=== PATIENT | female | born 1980 | race Caucasian/White ===

== ENCOUNTER 2017-09-01 12:05 | Emergency (ER) | payer MEDICAID, SELFPAY ==
[2017-09-01 12:06] VITALS: BP 133/70; PULSE 77; RESP 18; TEMP 37.1; O2SAT 100; BMI 27.7
--- NOTE | 2017-09-01 12:26 | VDLE_ITS ---
Reason For Study: Swelling LLE RIGHT LEFT CFV is compressible, spontaneous, phasic, GSV is normal. competent and demonstrates normal CFV is compressible, spontaneous, phasic, augmentation. competent, and demonstrates normal Procedure augmentation. Exam performed portable in ED. FV is compressible, spontaneous, phasic, A preliminary report was called and/or faxed competent and demonstrates normal to Dr. Aldana. augmentation. POP V is compressible, spontaneous, phasic, competent and demonstrates normal augmentation. T/P Trunk is compressible. PTV is compressible. LT PerV is compressible. Lt GSV branch is dilated and non compressible from the mid thigh to the mid calf Image 11 and 12 mislabeled (should be labeled Lt GSV branch). Interpretation Summary Deep veins of the left lower extremity are patent and compressible segmentally. There is no evidence of left lower extremity deep vein thrombosis. Valvular competence appears intact within the proximal deep venous system on the left . The left greater saphenous vein appears patent and compressible segmentally. Acute superficial thrombophlebitis is noted involving a branch of the left greater saphenous vein from the left mid-thigh to the left mid-calf. Ordering Physician: Kj Aldana Performed By: Melinda Eubanks, CALVIN, RVT
[2017-09-01] MEDS: Ibuprofen 600 MG Tablet PO (12:32)
[2017-09-01 12:39] LABS: Bacteria 0 SEEN /hpf (None Seen); Mucous, Urine 0 SEEN /hpf (<or=2+); White Blood Cells 0 SEEN /hpf (0-5)
[2017-09-01 12:42] LABS: Internal QC Validated? YES +Cl - CLEAR BKGD
[2017-09-01 12:43] LABS: Color, Urine Yellow (Yellow); Glucose, Dipstick Normal (Normal); Ketone-Dipstick Negative (Negative); Leukocyte Esterase-Dipstick Negative /ul (Negative); Nitrite-Dipstick Negative (Negative); Occult Blood-Urine 250 /ul (Negative); Protein-Dipstick Negative (Negative); Urine Bilirubin Dipstick Negative (Negative); Urine Clarity Sl. Cloudy (Clear); Urine Urobilinogen Normal (Normal)
[2017-09-01 12:46] LABS: Pregnancy, Urine Negative Negative
[2017-09-01 12:50] LABS: Red Blood Cells-Urine 50-100 SEEN /hpf (0-5)
[2017-09-01 12:51] LABS: Squamous Epithelial Cells - UA 0-5 SEEN /hpf (5-10)
--- NOTE | 2017-09-01 13:55 | ED.VISSUMM ---
- ER Visit Summary Date of Service: 09/01/17 Chief Complaint: Abdominal pain History of Present Illness: The patient is a 37 F who goes to the [facility]. She reports that she has abdominal pain that began 2 days ago while she was working out. States it is in her right lower abdomen. It is a cramping pain Zeta 10 at worst and 2 out of 10 currently. Is worsened by movement or walking. Is relieved by heating pad. She denies any nausea, vomiting, or diarrhea. Her last bowel movement was yesterday. No melena or hematochezia. No dysuria or frequency. She reports that she is on her period now. She reports that her left leg is swollen that began this morning. No recent travel. She does have a family history of DVT. No chest pain or shortness of breath. Physical Examination: Vitals: Stable. Afebrile. General: Well-nourished and well-developed. Head: Normocephalic atraumatic. Neck: Supple, no lymphadenopathy. No JVD. Nontender. Cardiovascular: Regular rate and rhythm. No murmurs. Respiratory: No respiratory distress. Clear to auscultation bilaterally. Abdominal: Soft, nontender, nondistended, normal bowel sounds. No guarding, rebound, or peritoneal signs. Ascites. Back: Nontender. Extremities: Nontender, 1+ pitting edema of her left lower extremity. 2+ dorsalis pedis pulse bilaterally. Skin: Normal color, no rash. Neurologic: Alert and oriented ?3. Cranial nerves II through XII are intact. Normal strength and sensation. Psych: Normal affect. Test Results: Urinalysis is negative. test is negative. Left lower extremity Doppler shows no DVT. She does have a superficial thrombus phlebitis in the greater saphenous vein. Emergency Department Course and Treatment: Patient was treated with ibuprofen and is resting comfortably. Treatment Plan: Patient will be discharged with ibuprofen. Instructed to use warm compresses to the superficial thrombophlebitis. Follow-up the [facility] in 1 week for repeat exam. Return to the emergency department for any worsening symptoms. Disposition: To home in improved and stable condition. Impression: 1. Superficial thrombophlebitis left leg. 2. Ascites. This note was generated with [employer] software. It may contain incorrect words, spelling, and punctuation that were not noted in review of the chart prior to signing ED Disposition - Plan for ED Patient: Disposition: Home or Assisted Living Chief Complaint: Abd Pain Instructions: ED Ascites, ED Phlebitis Superficial Prescriptions: Ibuprofen 600 mg PO TID PRN #30 tablet PRN Reason: Pain Referrals: Leah Sanches [NON-STAFF] - 1 Week
--- NOTE | 2017-09-01 14:03 | ED.DCSUM_ITS ---
- ER Visit Summary Date of Service: 09/01/17 Chief Complaint: Abdominal pain History of Present Illness: The patient is a 37 F who goes to the [facility]. She reports that she has abdominal pain that began 2 days ago while she was working out. States it is in her right lower abdomen. It is a cramping pain Zeta 10 at worst and 2 out of 10 currently. Is worsened by movement or walking. Is relieved by heating pad. She denies any nausea, vomiting, or diarrhea. Her last bowel movement was yesterday. No melena or hematochezia. No dysuria or frequency. She reports that she is on her period now. She reports that her left leg is swollen that began this morning. No recent travel. She does have a family history of DVT. No chest pain or shortness of breath. Physical Examination: Vitals: Stable. Afebrile. General: Well-nourished and well-developed. Head: Normocephalic atraumatic. Neck: Supple, no lymphadenopathy. No JVD. Nontender. Cardiovascular: Regular rate and rhythm. No murmurs. Respiratory: No respiratory distress. Clear to auscultation bilaterally. Abdominal: Soft, nontender, nondistended, normal bowel sounds. No guarding, rebound, or peritoneal signs. Ascites. Back: Nontender. Extremities: Nontender, 1+ pitting edema of her left lower extremity. 2+ dorsalis pedis pulse bilaterally. Skin: Normal color, no rash. Neurologic: Alert and oriented ?3. Cranial nerves II through XII are intact. Normal strength and sensation. Psych: Normal affect. Test Results: Urinalysis is negative. test is negative. Left lower extremity Doppler shows no DVT. She does have a superficial thrombus phlebitis in the greater saphenous vein. Emergency Department Course and Treatment: Patient was treated with ibuprofen and is resting comfortably. Treatment Plan: Patient will be discharged with ibuprofen. Instructed to use warm compresses to the superficial thrombophlebitis. Follow-up the [facility] in 1 week for repeat exam. Return to the emergency department for any worsening symptoms. Disposition: To home in improved and stable condition. Impression: 1. Superficial thrombophlebitis left leg. 2. Ascites. This note was generated with [employer] software. It may contain incorrect words, spelling, and punctuation that were not noted in review of the chart prior to signing ED Disposition - Plan for ED Patient: Disposition: Home or Assisted Living Chief Complaint: Abd Pain Instructions: ED Ascites, ED Phlebitis Superficial Prescriptions: Ibuprofen 600 mg PO TID PRN #30 tablet PRN Reason: Pain Referrals: Leah Sanches [NON-STAFF] - 1 Week
[2017-09-01 14:13] VITALS: BP 119/62; PULSE 71; RESP 18; O2SAT 100
== END 2017-09-01 14:26 | disposition home or self-care (01) ==
PROVIDERS: Emergency Provider Emergency Medicine
DX: R18.8 Other ascites (principal); I80.02 Phlebitis and thrombophlebitis of superficial vessels of left lower extremity; F11.20 Opioid dependence, uncomplicated; B19.20 Unspecified viral hepatitis C without hepatic coma; Z72.0 Tobacco use
CPT/HCPCS: 81001; 81025; 93971; 99283

== ENCOUNTER 2017-09-09 23:19 | Emergency (ER) | payer MEDICAID, SELFPAY ==
[2017-09-09 23:20] VITALS: BP 120/77; PULSE 80; RESP 15; TEMP 36.8; BMI 27.6
--- NOTE | 2017-09-09 23:43 | ED.VISSUMM ---
- ER Visit Summary Date of Service: 09/09/17 Chief Complaint: [] Left leg pain History of Present Illness: The patient is a 37 F [] presents complaining of worsening left leg pain. Patient reports she was seen last week and told that she had a blood clot. She reports she was not started on any medication for this reported blood clot. She reports continued discomfort despite taking the previously prescribed ibuprofen. She denies any chest pain or shortness of breath. No other complaints at this time. She reports she is living at a residential rehabilitation facility for IV drug abuse. 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 Physical Examination: [] Afebrile, vital signs stable. 37-year-old female no acute distress. Reading a novel upon my entry into the room. Cardiovascular exam is regular rate and rhythm. Lungs are clear to auscultation. Abdomen is soft and nontender. There is mild tenderness to the left calf without asymmetry compared to the contralateral leg. Test Results: [] None. Emergency Department Course and Treatment: [] I reviewed the patient's dictation from her previous visit and she was in fact diagnosed with superficial thrombophlebitis. She will be encouraged to continue using NSAIDs [id number]. No further evaluation was warranted at this time for this presentation. Treatment Plan: [] Follow-up with PCP. Disposition: [] Discharge, stable. Impression: [] Left lower extremity superficial thrombophlebitis This note was generated with [employer] dictation software. It may contain incorrect words, spelling, and punctuation that were not noted in review of the chart prior to signing ED Disposition - Plan for ED Patient: Chief Complaint: Lower Extremity Injury Referrals: Care Physician,No Primary [Primary Care Provider] -
--- NOTE | 2017-09-09 23:46 | ED.DCSUM_ITS ---
- ER Visit Summary Date of Service: 09/09/17 Chief Complaint: [] Left leg pain History of Present Illness: The patient is a 37 F [] presents complaining of worsening left leg pain. Patient reports she was seen last week and told that she had a blood clot. She reports she was not started on any medication for this reported blood clot. She reports continued discomfort despite taking the previously prescribed ibuprofen. She denies any chest pain or shortness of breath. No other complaints at this time. She reports she is living at a residential rehabilitation facility for IV drug abuse. 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 Physical Examination: [] Afebrile, vital signs stable. 37-year-old female no acute distress. Reading a novel upon my entry into the room. Cardiovascular exam is regular rate and rhythm. Lungs are clear to auscultation. Abdomen is soft and nontender. There is mild tenderness to the left calf without asymmetry compared to the contralateral leg. Test Results: [] None. Emergency Department Course and Treatment: [] I reviewed the patient's dictation from her previous visit and she was in fact diagnosed with superficial thrombophlebitis. She will be encouraged to continue using NSAIDs [id number]. No further evaluation was warranted at this time for this presentation. Treatment Plan: [] Follow-up with PCP. Disposition: [] Discharge, stable. Impression: [] Left lower extremity superficial thrombophlebitis This note was generated with [employer] dictation software. It may contain incorrect words, spelling, and punctuation that were not noted in review of the chart prior to signing ED Disposition - Plan for ED Patient: Chief Complaint: Lower Extremity Injury Referrals: Care Physician,No Primary [Primary Care Provider] -
--- NOTE | 2017-09-09 23:46 | ED.DEP ---
ED Disposition - Plan for ED Patient: Disposition: Home or Assisted Living Chief Complaint: Lower Extremity Injury Instructions: ED Phlebitis Superficial Prescriptions: Naproxen 500 mg PO BID PRN PRN #20 tab PRN Reason: Pain Referrals: Care Physician,No Primary [Primary Care Provider] -
[2017-09-09 23:47] VITALS: BP 116/78; PULSE 84; RESP 15; O2SAT 98
== END 2017-09-09 23:54 | disposition home or self-care (01) ==
PROVIDERS: Emergency Provider Emergency Medicine; Family Provider Nurse Practitioner Family; PCP Nurse Practitioner Family
DX: I80.02 Phlebitis and thrombophlebitis of superficial vessels of left lower extremity (principal); Z79.82 Long term (current) use of aspirin
CPT/HCPCS: 99282

== ENCOUNTER → 2017-09-16 07:56 | Outpatient (CLI) | payer MEDICAID, SELFPAY ==
[2017-09-16 09:53] LABS: AST(SGOT) 28 U/L (15-37); Alanine Aminotransfer ALT/SGPT 50 U/L (13-56); Albumin, Serum 3.5 g/dL (3.2-5.0); Alkaline Phosphatase 57 U/L (45-117); Bilirubin, Direct 0.08 mg/dL (0.00-0.30); Cholesterol 176 mg/dL (200); Globulin 3.6 g/dL (2.2-4.2); High Density Lipoprotein 76 mg/dL; Protein, Total 7.1 g/dL (6.4-8.2); Triglycerides 93 mg/dL; Very Low Density Lipoprotein 19 mg/dL (5-40)
== END ==
PROVIDERS: Family Provider Nurse Practitioner Family; PCP Nurse Practitioner Family; Visit Provider Internal Medicine Cardiovascular Disease
DX: R18.8 Other ascites (principal); I43 Cardiomyopathy in diseases classified elsewhere
CPT/HCPCS: 36415; 80061; 80076

== ENCOUNTER → 2017-09-27 13:11 | Outpatient (CLI) | payer MEDICAID, SELFPAY ==
--- NOTE | 2017-09-27 13:18 | RAD_ITS ---
STUDY: X-RAY - LEFT SHOULDER REASON FOR EXAM: Female, 37 years old. Pain TECHNIQUE: 4 view(s) of the shoulder. COMPARISON: None. FINDINGS: Normal glenohumeral articulation. Normal acromioclavicular joint. Normal acromion. Normal humeral head and visualized proximal humerus. The soft tissue structures are unremarkable. Normal visualized pulmonary apex. RAD/Shoulder min 2 Views IMPRESSION: Normal x-ray examination of the shoulder. Electronically Signed: Jose Macdonald DO at 0:00 EDT , Service support ,
== END ==
PROVIDERS: Family Provider Nurse Practitioner Family; PCP Nurse Practitioner Family; Visit Provider Nurse Practitioner Family
DX: M25.512 Pain in left shoulder (principal)
CPT/HCPCS: 73030

== ENCOUNTER → 2017-09-29 | Outpatient (CLI) | payer MEDICAID, SELFPAY | END | disposition home or self-care (01) | DX: B18.2 Chronic viral hepatitis C (principal) ==

== ENCOUNTER → 2017-10-02 13:05 | Outpatient (CLI) | payer MEDICAID, SELFPAY ==
--- NOTE | 2017-10-02 13:06 | ECHOD_ITS ---
Reason For Study: CM Procedure This was a 2D Doppler, Color Flow transthoracic echocardiogram. Exam performed in department. Left Ventricle Normal size and thickness. The estimated ejection fraction is 55-60 %. Normal diastology for age. No regional wall motion abnormalities noted. Right Ventricle Normal size and thickness. Normal systolic function. Atria Normal left atrium. Normal right atrium. Normal atrial septum. Mitral Valve The mitral valve is structurally normal. No prolapse or stenosis seen. Trivial mitral valve insufficiency. Tricuspid Valve Normal tricuspid valve. Trivial tricuspid valve insufficiency. Right ventricular systolic pressure estimated to be 28 mmHg. Aortic Valve Normal aortic valve. Trisinus/trileaflet aortic valve. Pulmonic Valve Normal pulmonic valve. Trivial eccentric pulmonic valve insufficiency. Great Vessels Normal aortic root. Normal arch. Normal inferior vena cava. Inferior vena cava collapse with sniff. Pericardium/Pleural No pericardial effusion. MMode/2D Measurements & Calculations LVIDd: 5.0 cm IVSd: 0.86 cm Ao root diam: 2.8 cm LVIDs: 3.2 cm LVPWd: 0.77 cm RVDd: 3.7 cm FS: 35.7 % LAV(MOD-bp): 30.9 ml EDV(MOD-sp4): 93.6 ml SV(MOD-sp4): 56.0 ml LAV(MOD-bp) Indexed: 16.4 ml/m2 ESV(MOD-sp4): 37.5 ml LAV(MOD-sp2): 35.6 ml EF(MOD-sp4): 59.9 % LAV(MOD-sp4): 22.5 ml LA A4 area: 11.6 cm2 RA A4 area: 13.1 cm2 Doppler Measurements & Calculations MV E max caesar: 100.4 cm/sec Lat Peak E' Caesar: 17.7 cm/sec Med Peak E' Caesar: 14.5 cm/sec MV A max caesar: 57.8 cm/sec E/E' lat: 5.7 E/E' med: 6.9 MV E/A: 1.7 Ao V2 max: 130.6 cm/sec LV V1 max: 101.5 cm/sec PA V2 max: 76.9 cm/sec Ao max P.8 mmHg LV V1 max P.1 mmHg Ao V2 mean: 102.7 cm/sec Ao mean P.5 mmHg Ao V2 VTI: 27.7 cm TR max caesar: 238.2 cm/sec TR max P.7 mmHg Interpretation Summary The estimated ejection fraction is 55-60 %. Normal diastology for age. Trivial mitral valve insufficiency. Trivial tricuspid valve insufficiency. Right ventricular systolic pressure estimated to be 28 mmHg. Compared to echo report dated 02/10/2016, LV function has markedly improved from 45% to 55-60%. Ordering Physician: Joey Jung Referring Physician: Leah Sanches [facility] Performed By: Melinda Eubanks, CALVIN, RVT
== END ==
PROVIDERS: Visit Provider Internal Medicine Cardiovascular Disease
DX: R06.09 Other forms of dyspnea (principal); I43 Cardiomyopathy in diseases classified elsewhere; F19.10 Other psychoactive substance abuse, uncomplicated; R18.8 Other ascites
CPT/HCPCS: 93306

== ENCOUNTER → 2017-10-07 09:42 | Outpatient (CLI) | payer MEDICAID, SELFPAY ==
[2017-10-07 11:39] LABS: GGTP 12 U/L (5-55)
== END ==
DX: B18.2 Chronic viral hepatitis C (principal)
CPT/HCPCS: 36415; 82247; 82977

== ENCOUNTER → 2017-10-11 06:57 | Outpatient (CLI) | payer MEDICAID, SELFPAY ==
--- NOTE | 2017-10-11 07:39 | STE_ITS ---
Reason For Study: Cardiomyopathy, Dyspnea Stress Results Protocol: Jerald Protocol Maximum Predicted HR: 182 bpm Target HR: 155 bpm% Max imum Predicted HR: 97 % DurationHeart Rate Stage (mm:ss) (bpm) BPCom ment Baseline 75 90/60 No Chest Pain Jerald Protocol Stage I 3:00 10 2 98/62No Chest Pain Jerald Protocol Stage II 3:00 12 6 116/60No Chest Pain Jerald Protocol Stage III 3:00 15 3 130/64No Chest Pain Jerald Protocol Stage IV 1:00 17 6 / No Chest Pain Recovery 99 10/70 No Chest Pain Stress Duration: 10:00 mm:ss Maximum Stress HR: 176 bpmME TS: 13 Baseline Echocardiogram Findings The estimated ejection fraction is 65 %. Stress Echo Wall motion Data Resting WMIntermediate WMStress WM Resting Wall Motion Wall Motion Stress No regional wall motion No regional wall motion abnormalities noted. abnormalities noted. EKG Data Normal intervals are noted. The patient exercised according to the regular Jerald protocol for a total duration of 10:00. The maximum heart rate attained was 179 beats per minute. This was 98% of maximum predicted heart rate. The patient exercised into stage 4 of the Jerald protocol. During stress, there were no ST or T wave changes noted to suggest ischemia. At peak exercise, upsloping ST changes only were noted, which did not meet the criteria for ischemia. Interpretation Summary The estimated ejection fraction is 65 %. Normal, adequate, treadmill echocardiogram. Negative for ischemia by EKG and echocardiographic criteria. No anginal symptoms noted. No arrhythmias noted. Average exercise capacity for age. Appropriate blood pressure response to exercise. Test terminated due to dyspnea. Final LVEF of 70%. No complications. Ordering Physician: Joey Jung Referring Physician: Joey Jung Performed By: Burke Partida RCS
--- NOTE | 2017-10-12 11:24 | PFTCOMP ---
COMPLETE PULMONARY FUNCTION TEST INTERPRETATION Brief HPI: Patient is a 37 year old female, currently under the care of Dr. Jung, who presents to [facility] for complete pulmonary function tests secondary to diagnosis of dyspnea. Respiratory therapist reports good effort and reproducible results. Interpretation: Forced expiration spirometry shows a mild large airways obstructive ventilatory defect with an FEV1 of 91% predicted. There is no significant bronchodilator response by ATS criteria. Spirograms are of good quality and plateau slowly, indicating slowly emptying areas of the lungs. The respiratory flow volume loop shows a normal pattern. However, there does appear to be flattening of the inspiratory limb and may indicate an extrathoracic variable obstruction. Lung volumes by body plethysmography show a normal total lung capacity at 6.42 L, 113% predicted. All other lung volumes are within normal limits. Diffusion capacity by carbon monoxide is normal at 70% predicted. The airway resistance is normal. No previous pulmonary function tests were available for review. Impression: Mild large airways obstructive ventilatory defect with no significant response to bronchodilators. Flow volume loop is suggestive of a variable extrathoracic airway obstruction.
--- NOTE | 2017-10-12 11:27 | PFTCOMP_ITS ---
COMPLETE PULMONARY FUNCTION TEST INTERPRETATION Brief HPI: Patient is a 37 year old female, currently under the care of Dr. Jung, who presents to [facility] for complete pulmonary function tests secondary to diagnosis of dyspnea. Respiratory therapist reports good effort and reproducible results. Interpretation: Forced expiration spirometry shows a mild large airways obstructive ventilatory defect with an FEV1 of 91% predicted. There is no significant bronchodilator response by ATS criteria. Spirograms are of good quality and plateau slowly, indicating slowly emptying areas of the lungs. The respiratory flow volume loop shows a normal pattern. However, there does appear to be flattening of the inspiratory limb and may indicate an extrathoracic variable obstruction. Lung volumes by body plethysmography show a normal total lung capacity at 6.42 L , 113% predicted. All other lung volumes are within normal limits. Diffusion capacity by carbon monoxide is normal at 70% predicted. The airway resistance is normal. No previous pulmonary function tests were available for review. Impression: Mild large airways obstructive ventilatory defect with no significant response to bronchodilators. Flow volume loop is suggestive of a variable extrathoracic airway obstruction.
== END ==
PROVIDERS: Visit Provider Internal Medicine Cardiovascular Disease
DX: R06.02 Shortness of breath (principal); I43 Cardiomyopathy in diseases classified elsewhere; F19.10 Other psychoactive substance abuse, uncomplicated
CPT/HCPCS: 93017; 93350; 94060; 94726; 94729

== ENCOUNTER → 2018-01-23 15:14 | Outpatient (CLI) | payer MEDICAID, SELFPAY ==
--- NOTE | 2018-01-23 15:15 | CT_ITS ---
STUDY: CT SOFT TISSUE NECK WITH CONTRAST REASON FOR EXAM: Female, 38 years old. L's Danlos syndrome. Shortness of breath. RADIATION DOSAGE (If Supplied By Facility): CTDIvol = ( 17.57 ) mGy, DLP = ( 491.48 ) mGycm TECHNIQUE: The patient was scanned in a multi-detector CT scanner. High resolution transaxial imaging was performed following intravenous administration of 75 ml of Isovue 300 contrast material. Sagittal and coronal images were reconstructed. Individualized dose optimization techniques were used for this CT. COMPARISON: None. Apical lungs clear. Normal caliber of the aortic arch. Apical thoracic cage normal. Cervical spine exhibits moderate disc degeneration at C5-C6 only with uncovertebral joint hypertrophy contributing to mild foraminal narrowing. Paranasal sinuses clear, cranial facial osseous structures normal. Intracranial, no acute process, limited evaluation. Extra cranial soft tissues including facial soft tissues and orbital contents appear normal. Pharyngeal and laryngeal soft tissues appear normal. Parapharyngeal and retropharyngeal fat planes appear normal. There is no cervical mass or lymphadenopathy. There is no supraclavicular mass or lymphadenopathy. Normal features of the parotid, submandibular, and thyroid gland. Widely patent pharyngeal and cervical airway, proximal thoracic trachea. Normal proximal esophagus. Normal appearance of the cervical vasculature. CT/Soft Tissue Neck WITH Contrast IMPRESSION: No acute abnormality of the cervical soft tissues. Mild degenerative disc disease at C5-C6 without stenosis. Electronically Signed: Tobin Jose, at 17:53 EDT Tel , Service support ,
== END ==
PROVIDERS: Referring Provider Internal Medicine Critical Care Medicine; Visit Provider Internal Medicine Critical Care Medicine
DX: Q79.6 Ehlers-Danlos syndromes (principal); M50.322 Other cervical disc degeneration at C5-C6 level; R06.09 Other forms of dyspnea
CPT/HCPCS: 70491; Q9967

== ENCOUNTER → 2018-07-05 13:21 | Outpatient (CLI) | payer MEDICAID, SELFPAY ==
[2017-12-28 06:47] VITALS: BMI 26.8
[2018-07-05 14:31] LABS: Amphetamine Urine VISTA NEGATIVE (<1000 ng/mL); Barbiturate Urine VISTA NEGATIVE (< 200 ng/mL); Benzodiazepine Urine VISTA NEGATIVE (< 200 ng/mL); Cocaine Urine VISTA NEGATIVE (< 300 ng/mL); Ecstacy Urine VISTA NEGATIVE (< 500 ng/mL); Methadone Urine VISTA NEGATIVE (< 300 ng/mL); PCP Urine VISTA NEGATIVE (< 25 ng/mL); THC Urine VISTA NEGATIVE (< 50 ng/mL); Vista UDS pH Range 6
[2018-07-05 15:17] LABS: ALB/GLOB Ratio 1.2 RATIO (0.9-2.4); AST(SGOT) 66 U/L (15-37); Alanine Aminotransfer ALT/SGPT 108 U/L (13-56); Albumin, Serum 4.2 g/dL (3.2-5.0); Alkaline Phosphatase 48 U/L (45-117); Anion Gap 8 (5-15); BUN 15 mg/dL (7-18); BUN/Creat Ratio 16.4 RATIO (10-20); Chloride 111 mmol/L (98-107); Creatinine, Serum 0.92 mg/dL (0.55-1.02); EST Glomerular Filtration Rate 72 mL/min (>60); Est Glom Filt Rate - Afr Amer 88 mL/min (>60); Globulin 3.5 g/dL (2.2-4.2); Glucose 107 mg/dL (74-106); Potassium 4.6 mmol/L (3.5-5.1); Protein, Total 7.7 g/dL (6.4-8.2); Sodium Level 141 mmol/L (136-145)
[2018-07-07 12:03] LABS: HCV log 10 6.725 (.)
== END ==
DX: B18.2 Chronic viral hepatitis C (principal)
CPT/HCPCS: 36415; 80053; 80307; 80320; 87522; G0480

== ENCOUNTER → 2018-08-07 12:12 | Outpatient (CLI) | payer MEDICAID, SELFPAY ==
--- NOTE | 2018-08-07 12:15 | US_ITS ---
STUDY: ULTRASOUND OF THE FEMALE PELVIS - COMPLETE REASON FOR EXAM: Female, 38 years old. Dysmenorrhea. Essure IUD device TECHNIQUE: Transabdominal and transvaginal (Transvaginal imaging, if present, was performed for enhanced visualization of uterus and endometrium, and posterior adnexal structures). COMPARISON: None. FINDINGS: Uterus anteverted in the midline, normal myometrial echotexture, tiny focal subendometrial calcification in the posterior fundus. Endometrium 10.6 mm, normal echotexture. Nabothian cysts of the cervix. IUD not visualized. The Essure devices may be difficult to observe within the fallopian tubes. No free fluid. No adnexal mass or cyst. Right ovary 27 x 23 x 20 mm, hypoechoic minimally complex crenelated cyst most consistent with a collapsing physiologic cyst, possibly hemorrhagic. Otherwise normal echotexture, normal vascularity. Left ovary 27 x 34 x 17 mm, normal echotexture, normal vascularity. US/Pelvic (Non ) IMPRESSION: Normal appearance of the endometrium. No other acute intrapelvic process is evident. Electronically Signed: Tobin Jose MD at 14:56 EDT Tel , Service support ,
--- NOTE | 2018-08-07 12:15 | US_ITS ---
STUDY: ULTRASOUND OF THE FEMALE PELVIS - COMPLETE REASON FOR EXAM: Female, 38 years old. Dysmenorrhea. Essure IUD device TECHNIQUE: Transabdominal and transvaginal (Transvaginal imaging, if present, was performed for enhanced visualization of uterus and endometrium, and posterior adnexal structures). COMPARISON: None. FINDINGS: Uterus anteverted in the midline, normal myometrial echotexture, tiny focal subendometrial calcification in the posterior fundus. Endometrium 10.6 mm, normal echotexture. Nabothian cysts of the cervix. IUD not visualized. The Essure devices may be difficult to observe within the fallopian tubes. No free fluid. No adnexal mass or cyst. Right ovary 27 x 23 x 20 mm, hypoechoic minimally complex crenelated cyst most consistent with a collapsing physiologic cyst, possibly hemorrhagic. Otherwise normal echotexture, normal vascularity. Left ovary 27 x 34 x 17 mm, normal echotexture, normal vascularity. US/Transvaginal Non- IMPRESSION: Normal appearance of the endometrium. No other acute intrapelvic process is evident. Electronically Signed: Tobin Jose MD at 14:56 EDT Tel , Service support ,
== END ==
DX: N94.6 Dysmenorrhea, unspecified (principal)
CPT/HCPCS: 76830; 76856; 93976

== ENCOUNTER → 2018-09-06 08:03 | Outpatient (CLI) | payer MEDICAID, SELFPAY ==
--- NOTE | 2018-09-07 11:12 | PFT ---
INTRODUCTION: The patient is a 38-year-old female that presents for pulmonary function studies secondary to a diagnosis of dyspnea on exertion. Respiratory therapy reports good patient effort. Bronchodilators were used during testing. INTERPRETATION: Forced expiration spirometry demonstrates no evidence of a large airways obstructive ventilatory defect. There was no significant response to aerosolized bronchodilators. Spirograms are of good quality and plateau normally. Body plethysmography was performed and reveals lung volumes to be within normal limits. Diffusing capacity by single breath CO is within normal limits at 80% of predicted. When compared to previous pulmonary function studies dated September 2017 there has been improvement in the patient's FEV1 and DLCO. IMPRESSION: Essentially normal pulmonary function studies with improvement noted since PFTs were last completed in September 2017.
== END ==
PROVIDERS: Referring Provider Internal Medicine Critical Care Medicine; Visit Provider Internal Medicine Critical Care Medicine
DX: Q79.6 Ehlers-Danlos syndromes (principal); R06.09 Other forms of dyspnea
CPT/HCPCS: 94060; 94726; 94729

== ENCOUNTER → 2018-11-22 15:10 | Outpatient (CLI) | payer MEDICAID, SELFPAY ==
[2018-09-12 09:53] VITALS: BMI 26.8
== END ==
PROVIDERS: Referring Provider Internal Medicine Infectious Disease; Visit Provider Internal Medicine Infectious Disease
DX: B18.2 Chronic viral hepatitis C (principal)
CPT/HCPCS: 36415; 87522

== ENCOUNTER → 2018-12-04 16:16 | Outpatient (CLI) | payer MEDICAID, SELFPAY ==
[2018-09-12 09:53] VITALS: BMI 26.8
--- NOTE | 2018-12-04 16:18 | US_ITS ---
STUDY: ULTRASOUND OF THE FEMALE PELVIS - COMPLETE REASON FOR EXAM: Female, 38 years old. Left lower quadrant LMP: TECHNIQUE: Transabdominal and Transvaginal TECHNICAL QUALITY: Adequate. COMPARISON: August 07, 2018 pelvic ultrasound FINDINGS: The uterus is anteverted and is in a midline position. The uterus measures 7.9 x 5.1 x 3.5 cm. Normal uterine cervix. The endometrium measures 13 mm in thickness, and is hyperechoic. There is a stable echogenicity within the uterus. There is no demonstrated myometrial mass. I.U.D. - The patient does not have an I.U.D. The right ovary is visualized. The right ovary measures 2.4 x 2.8 x 2.1 cm. There is a new mildly complex right ovarian cyst measuring 2.4 x 2.0 x 1.8 cm. There is no visualized right adnexal mass or complex lesion. There is normal arterial and normal venous vascularity. The left ovary is visualized. The left ovary measures 3.1 x 1.5 x 1.3 cm. There is a left ovarian cyst measuring 1.2 x 1 0.1 to 0.8 cm. There is no visualized left adnexal mass or complex lesion. There is normal arterial and normal venous vascularity. Partially visualized Essure clips. There is no fluid in the cul-de-sac. The prevoid bladder volume is 322.56. Polycystic ovary disease: No. US/Pelvic (Non ) IMPRESSION: Mildly complex right ovarian cyst could consider follow-up in one to 2 menstrual cycles to ensure regression. No evidence of torsion. Nonspecific echogenicity within the uterus is likely a small calcification. Small left ovarian follicle. Electronically Signed: Sharri Gomez MD at 22:21 EDT Tel , Service support ,
--- NOTE | 2018-12-04 16:29 | US_ITS ---
STUDY: ULTRASOUND OF THE FEMALE PELVIS - COMPLETE REASON FOR EXAM: Female, 38 years old. Left lower quadrant LMP: TECHNIQUE: Transabdominal and Transvaginal TECHNICAL QUALITY: Adequate. COMPARISON: August 07, 2018 pelvic ultrasound FINDINGS: The uterus is anteverted and is in a midline position. The uterus measures 7.9 x 5.1 x 3.5 cm. Normal uterine cervix. The endometrium measures 13 mm in thickness, and is hyperechoic. There is a stable echogenicity within the uterus. There is no demonstrated myometrial mass. I.U.D. - The patient does not have an I.U.D. The right ovary is visualized. The right ovary measures 2.4 x 2.8 x 2.1 cm. There is a new mildly complex right ovarian cyst measuring 2.4 x 2.0 x 1.8 cm. There is no visualized right adnexal mass or complex lesion. There is normal arterial and normal venous vascularity. The left ovary is visualized. The left ovary measures 3.1 x 1.5 x 1.3 cm. There is a left ovarian cyst measuring 1.2 x 1 0.1 to 0.8 cm. There is no visualized left adnexal mass or complex lesion. There is normal arterial and normal venous vascularity. Partially visualized Essure clips. There is no fluid in the cul-de-sac. The prevoid bladder volume is 322.56. Polycystic ovary disease: No. US/Transvaginal Non- IMPRESSION: Mildly complex right ovarian cyst could consider follow-up in one to 2 menstrual cycles to ensure regression. No evidence of torsion. Nonspecific echogenicity within the uterus is likely a small calcification. Small left ovarian follicle. Electronically Signed: Sharri Gomez MD at 22:21 EDT Tel , Service support ,
== END ==
DX: R10.2 Pelvic and perineal pain (principal); B18.2 Chronic viral hepatitis C
CPT/HCPCS: 76830; 76856; 93976

== ENCOUNTER → 2018-12-05 08:32 | Outpatient (CLI) | payer MEDICAID, SELFPAY ==
[2018-09-12 09:53] VITALS: BMI 26.8
--- NOTE | 2018-12-05 08:36 | US_ITS ---
STUDY: ABDOMINAL ULTRASOUND REASON FOR EXAM: Female, 38 years old. Hepatitis C TECHNIQUE: Transabdominal ultrasound was performed with real-time and static gutiérrez scale imaging. TECHNICAL QUALITY: Adequate. COMPARISON: None. FINDINGS: Liver: The liver measures 13.7 cm. There is increased echogenicity consistent with fatty infiltration. The bile ducts are within normal limits. There is hepatic color flow. The direction of portal flow is hepatopetal. There is no demonstrated mass lesion. Gallbladder: Normal distended gallbladder. The gallbladder wall measures 1.9 mm. There is a negative sonographic Becker's sign. There is no pericholecystic fluid. There are no gallstones. Common Bile Duct (C.B.D.): The common bile duct measures 3.6 mm. Pancreas: Normal size of the head, body and tail of the pancreas. There is normal echogenicity of the pancreas. There is no demonstrated pancreatic mass or cyst. Spleen: Normal size of the spleen. The spleen measures 11.3 cm. Right Kidney: Normal size of the right kidney. The right kidney measures 10.8 cm. there is a 1 x 1.2 x 1.5 cm right renal upper pole simple cyst.. There is no right hydronephrosis. Left Kidney: Normal size of the left kidney. The left kidney measures 10.6 cm There is no demonstrated renal mass or cyst. There is no left hydronephrosis. Aorta: No aneurysm I.V.C.: The IVC is patent. There is no ascites. US/Abdomen Complete IMPRESSION: Fibrofatty infiltration of the liver. There is no evidence of cirrhosis at this time. Small right renal upper pole simple cyst. Normal gallbladder. Electronically Signed: Geovanna Stern, at 17:16 EDT Tel , Service support ,
== END ==
DX: R10.2 Pelvic and perineal pain (principal); B18.2 Chronic viral hepatitis C
CPT/HCPCS: 76700

== ENCOUNTER → 2019-03-29 09:02 | Outpatient (CLI) | payer MEDICAID, SELFPAY ==
[2019-03-29 08:32] VITALS: BMI 25.4
[2019-03-29 12:44] LABS: Absolute Lymphocyte Count 1.07 X10^3/uL (0.83-4.51); Absolute Neutrophil Count 1.6 X10^3/uL (2.0-7.7); Basophil# 0.02 X10^3/uL; Basophil% 0.7 % (0-1); Eosinophil# 0.09 X10^3/uL; Hematocrit 40.6 % (37-47); Hemoglobin 13.3 g/dL (12.0-15.0); Lymphocyte # 1.07 X10^3/ul (4.0); Lymphocyte % 35.7 % (19-41); Mean Corp Hgb Conc 32.8 g/dL (32-36); Mean Corpuscular Hgb 30.7 pg (27.0-32.0); Mean Corpuscular Volume 93.8 fL (81-99); Mean Platelet Vol. 13.3 fl (6.2-12.0); Monocyte# 0.24 X10^3/uL; NRBC Flagged by Analyzer 0 % (0-5); Neutrophil # 1.56 X10^3/uL (2.7-7.7); Neutrophil % 51.9 % (47-70); Platelet Count 100 K/mm3 (150-450); RBC Distribution Width SD 44.6 fl (35.1-43.9); Red Blood Count 4.33 M/mm3 (4.2-5.4)
[2019-03-29 13:09] LABS: ALB/GLOB Ratio 1.1 RATIO (0.9-2.4); AST(SGOT) 47 U/L (15-37); Alanine Aminotransfer ALT/SGPT 75 U/L (13-56); Albumin, Serum 3.7 g/dL (3.2-5.0); Alkaline Phosphatase 35 U/L (45-117); Anion Gap 4 (5-15); BUN 11 mg/dL (7-18); BUN/Creat Ratio 11.8 RATIO (10-20); Calcium,Total 8.4 mg/dL (8.5-10.1); Chloride 110 mmol/L (98-107); Creatinine, Serum 0.93 mg/dL (0.55-1.02); EST Glomerular Filtration Rate 71 mL/min (>60); Est Glom Filt Rate - Afr Amer 86 mL/min (>60); Globulin 3.5 g/dL (2.2-4.2); Glucose 84 mg/dL (74-106); Potassium 4.2 mmol/L (3.5-5.1); Protein, Total 7.2 g/dL (6.4-8.2); Sodium Level 140 mmol/L (136-145)
== END ==
PROVIDERS: PCP Internal Medicine; Visit Provider Internal Medicine
DX: B19.20 Unspecified viral hepatitis C without hepatic coma (principal)
CPT/HCPCS: 36415; 80053; 85025

== ENCOUNTER → 2019-05-30 14:24 | Outpatient (CLI) | payer MEDICAID, SELFPAY ==
[2019-03-29 08:32] VITALS: BMI 25.4
[2019-04-26 14:42] VITALS: BMI 25.4
[2019-05-30 15:43] LABS: Absolute Lymphocyte Count 1.39 X10^3/uL (0.83-4.51); Absolute Neutrophil Count 2.2 X10^3/uL (2.0-7.7); Basophil# 0.01 X10^3/uL; Basophil% 0.2 % (0-1); Eosinophil# 0.16 X10^3/uL; Eosinophils% 3.9 % (0-5); Hematocrit 39.4 % (37-47); Hemoglobin 12.7 g/dL (12.0-15.0); Lymphocyte # 1.39 X10^3/ul (4.0); Lymphocyte % 34.2 % (19-41); Mean Corp Hgb Conc 32.2 g/dL (32-36); Mean Corpuscular Volume 93.1 fL (81-99); Mean Platelet Vol. 13.1 fl (6.2-12.0); Monocyte# 0.29 X10^3/uL; Monocyte% 7.1 % (0-10); NRBC Flagged by Analyzer 0 % (0-5); Neutrophil # 2.22 X10^3/uL (2.7-7.7); Neutrophil % 54.6 % (47-70); Platelet Count 106 K/mm3 (150-450); RBC Distribution Width CV 13.2 % (11.6-14.6); RBC Distribution Width SD 44.5 fl (35.1-43.9); Red Blood Count 4.23 M/mm3 (4.2-5.4); White Blood Count 4.1 K/mm3 (4.4-11.0)
[2019-05-30 16:00] LABS: Amphetamine Urine VISTA NEGATIVE (<1000 ng/mL); Barbiturate Urine VISTA NEGATIVE (< 200 ng/mL); Benzodiazepine Urine VISTA NEGATIVE (< 200 ng/mL); Cocaine Urine VISTA NEGATIVE (< 300 ng/mL); Ecstacy Urine VISTA POSITIVE (< 500 ng/mL); Methadone Urine VISTA NEGATIVE (< 300 ng/mL); PCP Urine VISTA NEGATIVE (< 25 ng/mL); THC Urine VISTA NEGATIVE (< 50 ng/mL); Vista UDS pH Range 7
[2019-05-30 16:15] LABS: AST(SGOT) 54 U/L (15-37); Alanine Aminotransfer ALT/SGPT 79 U/L (13-56); Albumin, Serum 3.8 g/dL (3.2-5.0); Alkaline Phosphatase 40 U/L (45-117); Anion Gap 4 (5-15); BUN 14 mg/dL (7-18); BUN/Creat Ratio 11.5 RATIO (10-20); Bilirubin, Direct 0.12 mg/dL (0.00-0.30); Chloride 111 mmol/L (98-107); Creatinine, Serum 1.22 mg/dL (0.55-1.02); EST Glomerular Filtration Rate 52 mL/min (>60); Est Glom Filt Rate - Afr Amer 63 mL/min (>60); Globulin 3.9 g/dL (2.2-4.2); Glucose 76 mg/dL (74-106); Potassium 3.8 mmol/L (3.5-5.1); Protein, Total 7.7 g/dL (6.4-8.2); Sodium Level 141 mmol/L (136-145)
[2019-05-30 16:17] LABS: Prothrombin Time (Protime)PT. 13.3 SECONDS (11.7-14.9)
[2019-05-30 16:19] LABS: Alcohol, Blood (Medical)-Serum < 3.0 mg/dL
[2019-05-31 09:24] LABS: HIV - WCH Non-Reactive (Nonreactive); Hepatitis B Surface Antibody Reactive; Hepatitis B Surface Antigen Non-Reactive (Nonreactive)
[2019-06-04 12:07] LABS: Comment 3 (.); Hepatitis A AB, Total Positive (Negative); Hepatitis B Core Ab Total Negative (Negative)
[2019-06-04 15:16] LABS: HCV log 10 6.954 (.); Hepatitis B Core AB IgM Negative (Negative); Hepatitis C Genotype 3
== END ==
PROVIDERS: PCP Internal Medicine; Referring Provider Internal Medicine Infectious Disease; Visit Provider Internal Medicine Infectious Disease
DX: B19.20 Unspecified viral hepatitis C without hepatic coma (principal)
CPT/HCPCS: 80048; 80076; 80307; 80320; 85025; 85610; 86703; 86704; 86705; 86706; 86708; 86709; 87340; 87522; 87902; G0480

== ENCOUNTER → 2019-06-26 14:53 | Outpatient (CLI) | payer MEDICAID, SELFPAY ==
[2019-06-26 08:18] VITALS: BMI 25.4
[2019-06-26 16:22] LABS: Amphetamine Urine VISTA NEGATIVE (<1000 ng/mL); Barbiturate Urine VISTA NEGATIVE (< 200 ng/mL); Benzodiazepine Urine VISTA NEGATIVE (< 200 ng/mL); Cocaine Urine VISTA NEGATIVE (< 300 ng/mL); Ecstacy Urine VISTA POSITIVE (< 500 ng/mL); Methadone Urine VISTA NEGATIVE (< 300 ng/mL); PCP Urine VISTA NEGATIVE (< 25 ng/mL); THC Urine VISTA NEGATIVE (< 50 ng/mL); Vista UDS pH Range 7
[2019-06-26 16:25] LABS: Alcohol, Blood (Medical)-Serum < 3.0 mg/dL
[2019-07-01 12:00] LABS: HPV APTIMA, High Risk Negative (Negative)
== END ==
PROVIDERS: PCP Internal Medicine; Referring Provider Internal Medicine Infectious Disease; Visit Provider Internal Medicine Infectious Disease
DX: Z12.4 Encounter for screening for malignant neoplasm of cervix (principal); B18.2 Chronic viral hepatitis C
CPT/HCPCS: 36415; 80307; 80320; 87624; 88175; G0145; G0480

== ENCOUNTER → 2019-07-02 15:30 | Outpatient (CLI) | payer MEDICAID, SELFPAY ==
[2019-06-26 08:18] VITALS: BMI 25.4
--- NOTE | 2019-07-02 15:31 | US_ITS ---
STUDY: ULTRASOUND OF THE FEMALE PELVIS - COMPLETE REASON FOR EXAM: Female, 39 years old. Left lower quadrant pain. TECHNIQUE: Transabdominal and Transvaginal TECHNICAL QUALITY: Adequate. COMPARISON: 12/04/2018 FINDINGS: The uterus is anteverted and is in a midline position. The uterus measures 8.1 x 5.1 x 3.8 cm. Normal uterine cervix. The endometrium measures 10 mm in thickness, and is hyperechoic. There is no demonstrated endometrial mass. There is no demonstrated myometrial mass. Again noted are uterine calcifications. The right ovary is visualized. The right ovary measures 3.1 x 2.9 x 2.8 cm. There is a 2.2 x 2.2 cm septated cyst in the right ovary. There is no visualized right adnexal mass or complex lesion. There is normal arterial and normal venous vascularity. The left ovary is visualized. The left ovary measures 2.4 x 1.9 x 1.0 cm. There is no left ovarian cyst or ovarian mass. There is no visualized left adnexal mass or complex lesion. There is normal arterial and normal venous vascularity. There is no fluid in the cul-de-sac. US/Pelvic (Non ) IMPRESSION: Thickened endometrium which is likely due to cyclic change. Otherwise, normal sonographic appearance of the uterus. 2.2 x 2.2 cm complex cyst in the right ovary. This is similar in appearance to the prior exam. A follow-up ultrasound in 2-3 months is recommended. Electronically Signed: Pastor Hanna, at 20:19 EDT Tel , Service support ,
--- NOTE | 2019-07-02 15:31 | US_ITS ---
STUDY: ULTRASOUND OF THE FEMALE PELVIS - COMPLETE REASON FOR EXAM: Female, 39 years old. Left lower quadrant pain. TECHNIQUE: Transabdominal and Transvaginal TECHNICAL QUALITY: Adequate. COMPARISON: 12/04/2018 FINDINGS: The uterus is anteverted and is in a midline position. The uterus measures 8.1 x 5.1 x 3.8 cm. Normal uterine cervix. The endometrium measures 10 mm in thickness, and is hyperechoic. There is no demonstrated endometrial mass. There is no demonstrated myometrial mass. Again noted are uterine calcifications. The right ovary is visualized. The right ovary measures 3.1 x 2.9 x 2.8 cm. There is a 2.2 x 2.2 cm septated cyst in the right ovary. There is no visualized right adnexal mass or complex lesion. There is normal arterial and normal venous vascularity. The left ovary is visualized. The left ovary measures 2.4 x 1.9 x 1.0 cm. There is no left ovarian cyst or ovarian mass. There is no visualized left adnexal mass or complex lesion. There is normal arterial and normal venous vascularity. There is no fluid in the cul-de-sac. US/Transvaginal Non- IMPRESSION: Thickened endometrium which is likely due to cyclic change. Otherwise, normal sonographic appearance of the uterus. 2.2 x 2.2 cm complex cyst in the right ovary. This is similar in appearance to the prior exam. A follow-up ultrasound in 2-3 months is recommended. Electronically Signed: Pastor Hanna, at 20:19 EDT Tel , Service support ,
== END ==
PROVIDERS: PCP Internal Medicine; Referring Provider Nurse Practitioner Women's Health; Visit Provider Nurse Practitioner Women's Health
DX: N83.201 Unspecified ovarian cyst, right side (principal); R93.89 Abnormal findings on diagnostic imaging of other specified body structures; R10.2 Pelvic and perineal pain
CPT/HCPCS: 76830; 76856; 93976

== ENCOUNTER → 2019-07-04 12:15 | Outpatient (CLI) | payer MEDICAID, SELFPAY ==
[2019-06-26 08:18] VITALS: BMI 25.4
== END ==
PROVIDERS: PCP Internal Medicine; Referring Provider Internal Medicine Infectious Disease; Visit Provider Internal Medicine Infectious Disease
DX: B18.2 Chronic viral hepatitis C (principal)
CPT/HCPCS: 36415

== ENCOUNTER → 2019-08-20 12:46 | Outpatient (CLI) | payer MEDICAID, SELFPAY ==
[2019-03-04 10:49] VITALS: BMI 26.8
[2019-07-26 14:38] VITALS: BMI 25.4
--- NOTE | 2019-08-22 11:29 | PFT ---
INTRODUCTION: The patient is a 39-year-old female that presents for pulmonary function studies secondary to a diagnosis of dyspnea. Respiratory therapy reports good patient effort. Bronchodilators were used during testing. INTERPRETATION: Forced expiration spirometry demonstrates no evidence of a large airways obstructive ventilatory defect. There was no significant response to aerosolized bronchodilators, based upon strict ATS criteria. Spirograms are of good quality and plateau normally. Body plus tomography was performed and reveals lung volumes to be within normal limits. Diffusing capacity by single breath CO is also within normal limits. When compared to pulmonary function studies from August 2018, there has been little overall change. IMPRESSION: Essentially normal pulmonary function studies with little overall change since 2018.
== END ==
PROVIDERS: PCP Internal Medicine; Referring Provider Internal Medicine Critical Care Medicine; Visit Provider Internal Medicine Critical Care Medicine
DX: R06.09 Other forms of dyspnea (principal)
CPT/HCPCS: 94060; 94726; 94729

== ENCOUNTER → 2019-09-04 14:14 | Outpatient (CLI) | payer MEDICAID, SELFPAY ==
[2019-08-28 10:56] VITALS: BMI 26.8
[2019-09-04 16:21] LABS: Hematocrit 40.8 % (37-47); Hemoglobin 13.4 g/dL (12.0-15.0); Mean Corp Hgb Conc 32.8 g/dL (32-36); Mean Corpuscular Hgb 30.8 pg (27.0-32.0); Mean Corpuscular Volume 93.8 fL (81-99); Mean Platelet Vol. 13.5 fl (6.2-12.0); Platelet Count 129 K/mm3 (150-450); RBC Distribution Width CV 12.3 % (11.6-14.6); Red Blood Count 4.35 M/mm3 (4.2-5.4); White Blood Count 5.8 K/mm3 (4.4-11.0)
[2019-09-04 16:47] LABS: ALB/GLOB Ratio 1.1 RATIO (0.9-2.4); AST(SGOT) 12 U/L (15-37); Alanine Aminotransfer ALT/SGPT 17 U/L (13-56); Albumin, Serum 4.1 g/dL (3.2-5.0); Alkaline Phosphatase 53 U/L (45-117); Anion Gap 7 (5-15); BUN 14 mg/dL (7-18); BUN/Creat Ratio 15.9 RATIO (10-20); Calcium,Total 9.1 mg/dL (8.5-10.1); Chloride 108 mmol/L (98-107); Creatinine, Serum 0.88 mg/dL (0.55-1.02); EST Glomerular Filtration Rate 76 mL/min (>60); Est Glom Filt Rate - Afr Amer 92 mL/min (>60); Globulin 3.8 g/dL (2.2-4.2); Glucose 62 mg/dL (74-106); Potassium 3.6 mmol/L (3.5-5.1); Protein, Total 7.9 g/dL (6.4-8.2); Sodium Level 138 mmol/L (136-145)
[2019-09-04 17:04] LABS: Scan Indicated on CBC? Y/N YES- FLAGS NOTED
[2019-09-15 03:06] LABS: HCV Quant. RNA PCR HCV Not Detected IU/mL (.)
== END ==
PROVIDERS: PCP Internal Medicine; Referring Provider Internal Medicine Infectious Disease; Visit Provider Internal Medicine Infectious Disease
DX: B18.2 Chronic viral hepatitis C (principal)
CPT/HCPCS: 36415; 80053; 85027; 87522

== ENCOUNTER 2019-09-19 16:54 | Emergency (ER) | payer MEDICAID, SELFPAY ==
[2019-08-28 10:56] VITALS: BMI 26.8
[2019-09-19 16:54] VITALS: BP 134/91; PULSE 103; RESP 18; TEMP 36.6; O2SAT 100; BMI 24.9
--- NOTE | 2019-09-19 17:12 | CT_ITS ---
STUDY: CT ABDOMEN AND PELVIS WITH CONTRAST REASON FOR EXAM: Female, 39 years old. EPIGASTRIC PAIN AND DISTENTION -- HX:DIVERTICULA,HEP C ,UT RADIATION DOSAGE (If Supplied By Facility): CTDIvol = ( 10.15 ) mGy, DLP = ( 499.47 ) mGycm TECHNIQUE: Transaxial images were obtained from the dome of the diaphragm to the symphysis pubis without oral contrast. IV 100mL Isovue-300 was administered. Sagittal and coronal images were reconstructed. Individualized dose optimization techniques were used for this CT. COMPARISON: AP supine plain film view of the abdomen and pelvis February 09, 2016; abdominal ultrasound December 05, 2018 FINDINGS: The visualized lung bases are unremarkable. The visualized portions of the heart are within normal limits. Normal liver. The patent portal vein diameter is 14 mm. Normal gallbladder and extrahepatic biliary system. The diameter of the common bile duct is 8 mm. Normal spleen. Normal pancreas. Normal bilateral adrenal glands. Normal right kidney. Normal left kidney. No hydronephrosis. Normal visualized stomach. Normal small intestine. There is a moderate volume of stool throughout the nondistended colon, and an element of constipation could be present. The partially gas appendix is visualized on series 602 images 58-67 and appears normal. Normal abdominal aorta. Normal inferior vena cava. Normal retroperitoneum. Normal urinary bladder. Normal visualized uterus. The patient has undergone prior bilateral Essure tubal occlusions. There are 2 hypodense cysts of the right ovary. The more anterior is mild rim enhancement, suggesting it is more mature follicle, and measures 1.65 x 2 x 2.1 cm. The more posterior is 2.35 x 2.1 x 2 cm. There is minimal free fluid in the cul-de-sac, which could herald recent follicular rupture. The parametrial branches of the right gonadal vein are mildly engorged. Normal abdominal wall. There is degenerative disc disease and reactive endplate osteophyte formation L5-S1. CT/Abdomen/Pelvis W IV Cont ONLY IMPRESSION: 1. Prior bilateral tubal occlusions. The uterus is unremarkable. 2. Two right ovarian cysts are noted, though measurements provided above. The more anterior plate shows some marginal enhancement typical of a mature cyst. There is small volume fluid in the cul-de-sac that may herald recent follicular rupture. 3. Moderate volume stool throughout the colon that may reflect a degree of constipation. No sign of bowel obstruction. The appendix is not visualized. Electronically Signed: Raman Florian MD at 18:44 EDT , Service support ,
--- NOTE | 2019-09-19 17:27 | ED.VIS.GI ---
History of Present Illness Chief Complaint: Abd Pain Narrative: Patient presenting for evaluation secondary to abdominal pain. Patient has a history of hepatitis C, she is currently undergoing medication treatment for eradication of hep C and is within 1 week of completing her treatment. Patient states that even predating the start of her hepatitis C treatment, she has had issues with intermittent abdominal pain. She reports that this is a crampy type sensation that is in her epigastrium, will come and go, but recently has been becoming more intense and more frequent. Patient states that there are not necessarily any inducible factors with this, she denies that it is worse with food, time of day, drinking, taking medications. Patient denies that it actually got any worse with the initiation of her hepatitis C treatment. Patient's prior surgical history is for a tubal ligation. Patient denies that she has had any fevers, she does have some nausea but no vomiting. She has a history of constipation in the past, but is not currently having any. She has been having normal bowel movements, and reports that she may be had a slightly loose bowel this morning. Patient reports that she called her infectious disease doctor when her pain was getting worse, he recommended she come to the emergency department for lab work and a CT scan. Past Medical History - Allergies and Home Meds Allergies/Adverse Reactions: Allergies No Known Allergies Allergy (Verified 08/28/19 10:54) Primary Care Physician: Mirta Cross MD [Primary Care Provider] - Prior records reviewed: Yes Past Medical History: - - Hepatitis C Surgical History: - - Tubal ligation Smoking Status: Current every day smoker - Family History Maternal Family History: Family History (Last Reviewed 08/28/19 @ 11:16 by DESTIN Ramírez) Mother Heart disease Hypertension Abdominal aortic aneurysm Other Alcoholism Arthritis Autoimmune disorder Osteoporosis Respiratory disease Family History: Reports: No pertinent history Review of Systems All systems negative except as indicated General: Denies: Chills, Fever, Sweats Eyes: Denies: Visual changes - bilaterally, Diplopia ENT: Denies: Rhinorrhea, Sore throat Cardiovascular: Denies: Chest pain, Palpitations Respiratory: Denies: Dyspnea, Cough, Dyspnea on exertion Gastrointestinal: Reports: Abdominal pain, Nausea Genitourinary: Denies: Dysuria, Hematuria, Frequency Musculoskeletal: Denies: Back pain, Extremity Pain Skin: Denies: Rash, Wounds Neurological: Denies: Headache, Weakness, Numbness Physical Exam Vital Signs/Narrative: Vital Signs Temp Pulse Resp BP Pulse Ox 09/19/19 16:54 98 F 103 H 18 134/91 H 100 Inital Vital Signs reviewed: Yes General: Well nourished, Well developed, No Acute Distress Head: Normocephalic, Atraumatic Eyes: Perrl, EOMI. Negative for: Scleral icterus ENT: Moist mucous membranes, No rhinorrhea Neck: Supple, Nontender Cardiovascular: Regular rate, Regular rhythm, No murmurs Respiratory: No distress, CTA bilaterally, Chest nontender Abdomen: Soft, Nontender, Nondistended, Normal bowel sounds Back: Nontender, Normal Inspection Extremities: Nontender, No edema Skin: Normal color, No rash Neurological: Alert, Oriented x3, Cranial nerves II-XII grossly intact, Normal Strength, Normal Sensation Psychological: Normal affect, Normal Mood Diagnostic/Tx/Re-eval Clinical Impression(s) from Imaging Studies Abdomen/Pelvis CT 09/19/19 17:12 IMPRESSION: 1. Prior bilateral tubal occlusions. The uterus is unremarkable. 2. Two right ovarian cysts are noted, though measurements provided above. The more anterior plate shows some marginal enhancement typical of a mature cyst. There is small volume fluid in the cul-de-sac that may herald recent follicular rupture. 3. Moderate volume stool throughout the colon that may reflect a degree of constipation. No sign of bowel obstruction. The appendix is not visualized. Electronically Signed: Raman Florian MD at 18:44 EDT , Service support , Laboratory Data 09/19/19 09/19/19 17:35 17:35 WBC 5.9 RBC 4.45 Hgb 13.5 Hct 41.1 MCV 92.4 MCH 30.3 MCHC 32.8 RDW Std Deviation 42.3 RDW Coeff of Valerie 12.4 Plt Count 131 L MPV 12.6 H Immature Gran % (Auto) 0.300 Neut % (Auto) 47.6 Lymph % (Auto) 44.1 H Mcduffie % (Auto) 5.5 Eos % (Auto) 2.2 Baso % (Auto) 0.3 Absolute Neuts (auto) 2.8 Absolute Lymphs (auto) 2.58 Nucleated RBC % 0 Sodium 140 Potassium 3.5 Chloride 108 H Carbon Dioxide 27.0 Anion Gap 5 BUN 19 H Creatinine 1.09 H Estim Creat Clear Calc 66.72 Est GFR (MDRD) Af Amer 71 Est GFR (MDRD) Non-Af 59 L BUN/Creatinine Ratio 17.4 Glucose 86 Calcium 9.6 Total Bilirubin 0.70 Direct Bilirubin 0.23 AST 12 L ALT 13 Alkaline Phosphatase 51 Total Protein 8.5 H Albumin 4.2 Globulin 4.3 H Lipase 137 - Medical Decision Making Patient presented in the setting of abdominal pain. She has relatively benign abdominal exam, but she does have a history of hepatitis so there is the possibility of malignancy or other etiology causing her pain so work-up was obtained. CBC CMP found to be significantly unremarkable. CT abdomen and pelvis per radiology shows a large stool burden, and potentially ruptured ovarian follicle. Patient has a benign exam at this point. I feel that her crampy intermittent pain likely is secondary to constipation and is not secondary to her hepatitis or from adverse effects from her medications. Patient was given reassurance, recommended to more regularly take her MiraLAX. Patient was discharged in stable condition. ED Disposition - Plan for ED Patient: Disposition: Home or Assisted Living Diagnosis: Abdominal pain, Constipation Instructions: ED Constipation Referrals: Mirta Cross MD [Primary Care Provider] - As Needed
[2019-09-19 17:45] LABS: Absolute Lymphocyte Count 2.58 X10^3/uL (0.83-4.51); Absolute Neutrophil Count 2.8 X10^3/uL (2.0-7.7); Basophil# 0.02 X10^3/uL; Basophil% 0.3 % (0-1); Eosinophil# 0.13 X10^3/uL; Eosinophils% 2.2 % (0-5); Hematocrit 41.1 % (37-47); Hemoglobin 13.5 g/dL (12.0-15.0); Lymphocyte # 2.58 X10^3/ul (4.0); Lymphocyte % 44.1 % (19-41); Mean Corp Hgb Conc 32.8 g/dL (32-36); Mean Corpuscular Hgb 30.3 pg (27.0-32.0); Mean Corpuscular Volume 92.4 fL (81-99); Mean Platelet Vol. 12.6 fl (6.2-12.0); Monocyte# 0.32 X10^3/uL; Monocyte% 5.5 % (0-10); NRBC Flagged by Analyzer 0 % (0-5); Neutrophil # 2.78 X10^3/uL (2.7-7.7); Neutrophil % 47.6 % (47-70); Platelet Count 131 K/mm3 (150-450); RBC Distribution Width CV 12.4 % (11.6-14.6); RBC Distribution Width SD 42.3 fl (35.1-43.9); Red Blood Count 4.45 M/mm3 (4.2-5.4); White Blood Count 5.9 K/mm3 (4.4-11.0)
[2019-09-19 18:04] LABS: AST(SGOT) 12 U/L (15-37); Alanine Aminotransfer ALT/SGPT 13 U/L (13-56); Albumin, Serum 4.2 g/dL (3.2-5.0); Alkaline Phosphatase 51 U/L (45-117); Anion Gap 5 (5-15); BUN 19 mg/dL (7-18); BUN/Creat Ratio 17.4 RATIO (10-20); Bilirubin, Direct 0.23 mg/dL (0.00-0.30); Calcium,Total 9.6 mg/dL (8.5-10.1); Chloride 108 mmol/L (98-107); Creatinine, Serum 1.09 mg/dL (0.55-1.02); EST Glomerular Filtration Rate 59 mL/min (>60); Est Glom Filt Rate - Afr Amer 71 mL/min (>60); Estimated Creatinine Clearance 66.72 ml/min; Globulin 4.3 g/dL (2.2-4.2); Glucose 86 mg/dL (74-106); Lipase 137 U/L (73-393); Potassium 3.5 mmol/L (3.5-5.1); Protein, Total 8.5 g/dL (6.4-8.2); Sodium Level 140 mmol/L (136-145)
== END 2019-09-19 19:16 | disposition home or self-care (01) ==
PROVIDERS: Emergency Provider Emergency Medicine; PCP Internal Medicine
DX: K59.00 Constipation, unspecified (principal); B19.20 Unspecified viral hepatitis C without hepatic coma; F17.200 Nicotine dependence, unspecified, uncomplicated
CPT/HCPCS: 74177; 80048; 80076; 83690; 85025; 99284; Q9967; A4216

== ENCOUNTER → 2019-09-30 11:28 | Outpatient (CLI) | payer MEDICAID, SELFPAY ==
[2019-09-19 16:54] VITALS: BMI 24.9
[2019-09-30 10:53] VITALS: BMI 24.9
[2019-09-30 11:48] LABS: Absolute Lymphocyte Count 1.68 X10^3/uL (0.83-4.51); Absolute Neutrophil Count 3.9 X10^3/uL (2.0-7.7); Basophil# 0.02 X10^3/uL; Basophil% 0.3 % (0-1); Eosinophil# 0.09 X10^3/uL; Eosinophils% 1.5 % (0-5); Hematocrit 42.5 % (37-47); Hemoglobin 13.7 g/dL (12.0-15.0); Lymphocyte # 1.68 X10^3/ul (4.0); Lymphocyte % 28.7 % (19-41); Mean Corp Hgb Conc 32.2 g/dL (32-36); Mean Corpuscular Hgb 30.7 pg (27.0-32.0); Mean Corpuscular Volume 95.3 fL (81-99); Monocyte% 3.4 % (0-10); NRBC Flagged by Analyzer 0 % (0-5); Neutrophil # 3.86 X10^3/uL (2.7-7.7); Neutrophil % 65.9 % (47-70); Platelet Count 152 K/mm3 (150-450); RBC Distribution Width CV 12.6 % (11.6-14.6); RBC Distribution Width SD 44.1 fl (35.1-43.9); Red Blood Count 4.46 M/mm3 (4.2-5.4); White Blood Count 5.9 K/mm3 (4.4-11.0)
[2019-09-30 12:05] LABS: ALB/GLOB Ratio 1.1 RATIO (0.9-2.4); AST(SGOT) 14 U/L (15-37); Alanine Aminotransfer ALT/SGPT 14 U/L (13-56); Albumin, Serum 4.3 g/dL (3.2-5.0); Alkaline Phosphatase 50 U/L (45-117); Anion Gap 6 (5-15); BUN 11 mg/dL (7-18); BUN/Creat Ratio 10.2 RATIO (10-20); Calcium,Total 9.3 mg/dL (8.5-10.1); Chloride 110 mmol/L (98-107); Creatinine, Serum 1.08 mg/dL (0.55-1.02); EST Glomerular Filtration Rate 60 mL/min (>60); Est Glom Filt Rate - Afr Amer 72 mL/min (>60); Glucose 94 mg/dL (74-106); Potassium 3.3 mmol/L (3.5-5.1); Protein, Total 8.3 g/dL (6.4-8.2); Sodium Level 140 mmol/L (136-145)
== END ==
PROVIDERS: Obstetrics & Gynecology; PCP Internal Medicine; Referring Provider Internal Medicine Infectious Disease; Visit Provider Internal Medicine Infectious Disease
DX: Z01.818 Encounter for other preprocedural examination (principal); B18.2 Chronic viral hepatitis C
CPT/HCPCS: 36415; 80053; 85025; 86850; 86900; 86901; 87522

== ENCOUNTER 2019-10-08 05:49 | Day surgery (SDC) | payer MEDICAID, SELFPAY ==
[2019-07-26 14:38] VITALS: BMI 25.4
[2019-09-30 10:53] VITALS: BMI 24.9
--- NOTE | 2019-10-08 05:55 | EKG12_ITS ---
Test Reason : PRE-OP Blood Pressure : / mmHG Vent. Rate : 062 BPM Atrial Rate : 062 BPM P-R Int : 136 ms QRS Dur : 082 ms QT Int : 422 ms P-R-T Axes : 062 070 054 degrees QTc Int : 428 ms Normal sinus rhythm Normal ECG When compared with ECG of 10-JUL-2015 22:10, Vent. rate has decreased BY 45 BPM Confirmed by TOBI SCHAEFFER ([id number]), newspaper or periodical editor ROCK BROWN ([id number]) on 10/15/2019 11:23:47 AM Referred By: Meagan Mejia Confirmed By:TOBI SCHAEFFER
[2019-10-08 06:19] LABS: Internal QC Validated? YES +Cl - CLEAR BKGD; Pregnancy, Urine Negative Negative
[2019-10-08] MEDS: Lactated Ringers 1,000 ML 100 ML IV (06:29)
[2019-10-08 06:30] VITALS: BP 102/62; PULSE 63; RESP 15; TEMP 36.4; O2SAT 99; BMI 26.4
[2019-10-08 06:54] LABS: International Normalized Ratio 1.1
--- NOTE | 2019-10-08 07:12 | HP.PCM_ITS ---
- Problem List (1) Pelvic pain Status: Acute Comment: suspect post essure pain. recommend laparoscopic BS a nd removal of devices. History and Physical Date of Admission: 10/08/19 Intake Vital Signs 09/30/19 Height 5 ft 7 in 09/30/19 Weight: 157 lb 4 oz 09/30/19 BMI 24.6 09/30/19 BP 120/86 H Intake Visit Reasons: Pre-op [employer] Required: No Is patient in pain?: No Allergies No Known Allergies Allergy (Verified 09/30/19 10:50) Medications polyethylene glycol 3350 17 gram/dose oral powder 17 g PO BID PRN #850 g 09/27/19 [Rx Confirmed 09/30/19] ibuprofen 200 mg capsule 200 mg PO Q6H PRN 09/30/19 [History Confirmed 09/30/19] Post menopausal: No Patient : No : No PFSH Medical History Ovarian cyst (Chronic) Coma (Resolved) Atrial fibrillation (Chronic) Cardiac arrest (Resolved) Diverticula of colon (Chronic) Hepatitis (Chronic) Superficial thrombophlebitis (Chronic) Dyspnea on exertion (Resolved) Susannah-Danlos disease (Chronic) 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 Meagan Mejia MD) second hand exposure: Yes alcohol intake: never substance use type: heroin, methamphetamine, other details: has not used 115 days caffeine: Yes Type: coffee what type of physical activity do you participate in: walking, yoga frequency: daily seatbelt use: always do you feel safe at home: Yes HPI Pre-op: Details: KURT DURAN is a 39 year old who presents for chronic lower pelvic pain and history of essure placements in 2007. she also has some epigastric pain intermittently, left side worse than the right. she has been in recovery 2 1/2 years, just finished hep c treatment and is negative. Female Reproductive History Cycle Length: 21-35 Bleeding Duration: 3 Pregancy History 5 Elective abortions Hx Para 3 Spontaneous abortions 2 Hx # Term Pregnancies 2 Ectopic pregnancies Hx # Pregnancies 1 Multiple births # of living children 2 Past Pregnancies Del. Date Name GA/Weeks Outcome Route Bth Weight Gen Labor Lgth Anesthesia [facility] Provider FOB Unknown Jacki 2000 Unknown Shakira 2005 Unknown Caitlyn 2010 8 days ROS Const Constitutional: Denies fatigue, fever(s), headache(s), increased appetite, poor appetite, weight gain or weight loss Cardio Card: Denies chest pain Resp Resp: Denies cough or dyspnea : Reports as per HPI; denies difficulty urinating, painful urination, nipple discharge, urinary frequency, urinary incontinence, urinary hesitancy, urinary urgency, vaginal discharge, vaginal dryness, vaginal odor or vaginal itching Skin Skin/Breast: Denies change in hair, breast lump, breast pain, breast skin changes or nipple discharge Exam Const General: cooperative, healthy appearing, comfortable, no acute distress, well developed Nutritional Appearance: average body habitus Orientation: alert HENFL Head: normal to inspection, normocephalic Neck Neck: normal visual inspection, trachea midline Thyroid: thyroid normal Resp Effort & Inspection: normal respiratory effort GI Inspection: normal to inspection, non-distended Palpation: soft, no hepatosplenomegaly Skin General: no rashes or lesions noted Assessment & Plan Problems 1. Pelvic pain R10.2 suspect post essure pain. recommend laparoscopic BS and removal of devices. Plan After discussing the patient's diagnosis and treatment plan options, patient wishes to proceed with surgical management. I have discussed with the patient the risks, benefits, and alternatives of the procedure which include but are not limited to risks of anesthesia, bleeding, infection, possible damage to bowel, bladder, or surrounding vasculature which could lead to additional surgery to evaluate any complications. Patient agrees to procedure and wishes to proceed. ACOG/uptodate references given for additional information regarding procedure. Coding Level of Care Code Off vis,est,level 4 Diagnoses Pelvic pain R10.2 UPDATE- I have seen the patient and performed any clinically relevant updates to the history and physical exam. Meagan Mejia MD
--- NOTE | 2019-10-08 07:30 | FALS_PTH ---
PATIENT: KURT HARRY LOC: [facility] [place] U#:[id number] AGE/SX: 39/F ROOM: RE10/08/[address]: Dr. Meagan Mejia MD : [id number] BED: DIS: 10/08/2019 SPEC #: [id number] RECD: 10/08/19 09:30 STATUS: EDDIE BIANCA #: [id number] KANDIS: 10/08/19 07:[address]: Meagan Mejia DEPT: SURGICAL PATHOLOGY RECD BY: Jeffrey Finley ENTERED: 10/08/19 10:00 SP TYPE: FALL TUBES OTHR DR: Dr. Mirta Corss MD Tissues: Fallopian tube Procedures: Surgery Specimen Level II Surgery Specimen Level IV HEADER OPERATION: Laparoscopic salpingectomy PRE-OP DIAGNOSIS: Pelvic pain R10.2 TISSUE SUBMITTED: Bilateral fallopian tubes MICROSCOPIC DIAGNOSIS Right and left fallopian tubes, bilateral salpingectomies: Complete segments of fallopian tube. One fallopian tube with acute salpingitis and changes of endometriosis. AM:luisa 10/09/19 COMMENT Case has been reviewed in consultation with Dr. Gan who concurs with the above diagnosis. CHAITANYA:DEACON MICROSCOPIC DESCRIPTION Slides are reviewed. GROSS DESCRIPTION Received in fixative is one container labeled with the patient's name and designated bilateral fallopian tubes. The specimen consists of bilateral fallopian tubes including fimbrial ends measuring 8 cm in length and 0.6 cm in diameter. The fallopian tubes are not identified as right or left. Sections reveal unremarkable cut surfaces. The proximal portion of the fallopian tubes reveals a coiled metallic wire consistent with Essure device. National Secretary sections are submitted in two cassettes with each cassette containing one fallopian tube. / DEACON:luisa 10/08/19 TC:2 CPT: 81131, 45193
--- NOTE | 2019-10-08 07:33 | OP.PCM_ITS ---
Problem List (1) Pelvic pain Status: Acute Comment: suspect post essure pain. recommend laparoscopic BS an d removal of devices. 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 Bladder was drained of clear urine and SCDs were on preoperatively. Uterus was sounded and a uterine manipulator was placed after dilating. Attention was then paid to the abdominal portion of the procedure and the umbilicus was elevated with towel clamps and injected with Marcaine and after a 5 mm incision was made and the Veress needle was entered into the abdomen confirmed to be intra-abdominal with a low opening pressure of less than 5 mmHg. Abdomen was insufflated with CO2 gas and a 5 mm optical trocar was placed under direct visualization. A left lower quadrant 5 mm port and a 5 mm port suprapubically were placed under direct visualization. Uterus was well visual ized and bilateral fallopian tubes identified and bilateral tubes were elevated and transecting across the mesosalpinx and the attachment to the uterine corpus bilaterally the tubes were removed without complication. after applying nelson Excellent hemostasis was noted. posterior endometriosis implants were seen and ablated with the ligasure device. Fallopian tubes were removed through the lower port sites without complication. Liver and upper abdomen were visualized notably within normal limits and no other gross abnormalities were seen in the abdomen. All instruments removed from the abdomen after gas was desufflated. Port sites were closed with 3-0 Monocryl Steri's and op sites were applied. All instruments removed from the vagina and patient was awoken and taken recovery in stable condition. Grafts/Implants Used: none - Complications none - Admit VTE Documentation VTE Present on Admission: No VTE Mechan Device Prophylaxis: SCD's Multi Select Codes - Urinary/Genital Urinary/Genital CPT Codes: 12137 Laproscopic BS/O
--- NOTE | 2019-10-08 07:35 | PCM.DC.TUB ---
Discharge Diet: No Restrictions - Increase fluid intake for the next 48 hours. Discharge Activity: Return to Normal Activity, May Drive - when you are no longer taking narcotic pain medications., May Shower, May Take a Tub Bath - in 7 days Additional Activity Instructions:: Ambulate often the next week after surgery. Nothing in the vagina for 5 days. Call your doctor if your incision/area has: Continuous Slow Oozing, Sudden Increased Bleeding, Increased Pain/ Swelling, Increased Redness, Foul Smelling Discharge Call your doctor if you observe: Fever of 101 or Higher Allergies/Adverse Reactions: Allergies No Known Allergies Allergy (Verified 10/08/19 06:19) Medications to take at Discharge polyethylene glycol 3350 17 gram/dose oral powder 17 g PO BID PRN #850 g 09/27/19 ibuprofen 200 mg capsule 200 mg PO Q6H PRN 09/30/19 Docusate Sodium [Stool Softener] 100 mg PO PRN PRN 10/02/19 Naproxen [Naprosyn] 250 - 500 mg PO Q8H PRN PRN #30 tab 10/08/19 The following prescriptions were given: Naproxen [Naprosyn] 250 - 500 mg PO Q8H PRN PRN #30 tab PRN Reason: MILD PAIN Transmission Status: Pending to [facility] Primary Care Physician: Mirta Cross MD [Primary Care Provider] - Test Results: Test results from this visit will be discussed in further detail at your follow-up appointment, if applicable. Please Follow Up With: Meagan Mejia MD - [phone]
[2019-10-08] MEDS: Lubricating Jelly 60 GM Tube 30 GM TOPICAL (07:38)
[2019-10-08] MEDS: Bupivacaine 0.25% 30 ML Vial (08:02)
[2019-10-08 08:25] VITALS: BP 102/62; BP 107/57; PULSE 71; RESP 16; TEMP 36.2; O2SAT 96
[2019-10-08 08:30] VITALS: BP 102/62; BP 103/66; PULSE 73; RESP 16; O2SAT 95
[2019-10-08 08:45] VITALS: BP 102/62; BP 105/60; PULSE 67; RESP 18; O2SAT 97
[2019-10-08 08:51] VITALS: BP 102/62; BP 96/68; PULSE 64; RESP 18; TEMP 36.2; O2SAT 97
[2019-10-08 09:30] VITALS: BP 102/62; BP 93/68; PULSE 67; RESP 18; TEMP 36.4; O2SAT 98
== END 2019-10-08 10:00 | disposition home or self-care (01) ==
LOC: SDC 05:50 → AC 05:51
PROVIDERS: Anesthesiology; PCP Internal Medicine; Referring Provider Obstetrics & Gynecology; Visit Provider Obstetrics & Gynecology
PROC: (CPT 58661; principal; 2019-10-08 07:15)
DX: N80.2 Endometriosis of fallopian tube (principal); N70.01 Acute salpingitis; F17.210 Nicotine dependence, cigarettes, uncomplicated; I25.2 Old myocardial infarction; Z86.19 Personal history of other infectious and parasitic diseases; F11.11 Opioid abuse, in remission; F15.11 Other stimulant abuse, in remission
CPT/HCPCS: 00840; 58661; 81025; 85610; 85730; 87635; 88302; 88305; 93005; G2023; J7120; J2405; U0003

== ENCOUNTER → 2020-01-01 09:50 | Outpatient (CLI) | payer MEDICAID, SELFPAY ==
[2019-09-30 10:53] VITALS: BMI 24.9
[2019-10-23 16:04] VITALS: BMI 26.4
[2020-01-03 03:07] LABS: HCV Quant. RNA PCR HCV Not Detected IU/mL (.)
== END ==
PROVIDERS: PCP Internal Medicine; Referring Provider Internal Medicine Infectious Disease; Visit Provider Internal Medicine Infectious Disease
DX: B18.2 Chronic viral hepatitis C (principal)
CPT/HCPCS: 36415; 87522

== ENCOUNTER → 2020-07-01 07:28 | Outpatient (CLI) | payer MEDICAID, SELFPAY ==
[2020-06-29 08:13] VITALS: BMI 26.1
--- NOTE | 2020-07-01 07:31 | BI_ITS ---
MAMMOGRAPHY - BILATERAL SCREENING REASON FOR EXAM: Female, 40 years old. Routine annual screening examination. PERTINENT HISTORY: Non-contributory. TECHNIQUE: Digital bilateral breast jair (3D mammographic acquisition) in the CC and MLO projections. 2-D mediolateral oblique (MLO) and craniocaudad (CC) views of both breasts were obtained. CAD: Full Field Digital Mammography with Computer Added Detection was performed. COMPARISON: None. Baseline examination. FINDINGS: Breast Composition: The breasts are heterogeneously dense, which may obscure small masses. There are no dominant masses or suspicious calcifications. No other significant abnormalities are identified. BI/SCRN MAMM (CAD)W/JAIR BILAT IMPRESSION: Negative screening mammogram. Yearly followup mammogram recommended. (A) ASSESSMENT CATEGORY: BIRADS Category 1: Negative. A letter regarding these results will be sent to the patient by the facility within 30 days. Approximately 10% of breast cancers are not detected by mammography. A normal mammogram should not delay biopsy of a clinically suspicious abnormality. [id number] Electronically Signed: John Jones MD at 8:16 EDT , Service support ,
== END ==
PROVIDERS: PCP Internal Medicine; Referring Provider Nurse Practitioner Women's Health; Visit Provider Nurse Practitioner Women's Health
DX: Z12.31 Encounter for screening mammogram for malignant neoplasm of breast (principal)
CPT/HCPCS: 77063; 77067

== ENCOUNTER 2020-09-24 14:51 | Emergency (ER) | payer MEDICAID, SELFPAY ==
[2020-07-09 08:10] VITALS: BMI 25.7
[2020-09-24 14:52] VITALS: BP 121/69; PULSE 85; RESP 16; TEMP 36.9; O2SAT 100; BMI 25.0
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
[2020-09-24] MEDS: Ondansetron 4 MG/2 ML Vial IV (15:40)
[2020-09-24 15:47] LABS: Absolute Lymphocyte Count 1.57 X10^3/uL (0.83-4.51); Absolute Neutrophil Count 3.2 X10^3/uL (2.0-7.7); Basophil# 0.02 X10^3/uL; Basophil% 0.4 % (0-1); Eosinophil# 0.08 X10^3/uL; Eosinophils% 1.6 % (0-5); Hematocrit 40.9 % (37-47); Hemoglobin 13.5 g/dL (12.0-15.0); Lymphocyte # 1.57 X10^3/ul (0.83-4.51); Lymphocyte % 30.4 % (19-41); Mean Corpuscular Hgb 30.4 pg (27.0-32.0); Mean Corpuscular Volume 92.1 fL (81-99); Mean Platelet Vol. 12.5 fl (6.2-12.0); Monocyte# 0.29 X10^3/uL; Monocyte% 5.6 % (0-10); NRBC Flagged by Analyzer 0 % (0-5); Neutrophil # 3.19 X10^3/uL (2.7-7.7); Neutrophil % 61.8 % (47-70); Platelet Count 145 K/mm3 (150-450); RBC Distribution Width CV 12.6 % (11.6-14.6); Red Blood Count 4.44 M/mm3 (4.2-5.4); White Blood Count 5.2 K/mm3 (4.4-11.0)
[2020-09-24 16:00] LABS: ALB/GLOB Ratio 1.1 RATIO (0.9-2.4); AST(SGOT) 24 U/L (15-37); Alanine Aminotransfer ALT/SGPT 16 U/L (13-56); Albumin, Serum 4.1 g/dL (3.2-5.0); Alkaline Phosphatase 47 U/L (45-117); Anion Gap 5 (5-15); BUN 13 mg/dL (7-18); BUN/Creat Ratio 12.6 RATIO (10-20); Calcium,Total 9.4 mg/dL (8.5-10.1); Chloride 109 mmol/L (98-107); Creatinine, Serum 1.03 mg/dL (0.55-1.02); EST Glomerular Filtration Rate 63 mL/min (>60); Est Glom Filt Rate - Afr Amer 76 mL/min (>60); Estimated Creatinine Clearance 67.29 ml/min; Globulin 3.8 g/dL (2.2-4.2); Glucose 99 mg/dL (74-106); Lipase 92 U/L (73-393); Protein, Total 7.9 g/dL (6.4-8.2); Sodium Level 141 mmol/L (136-145)
[2020-09-24 16:27] VITALS: BP 107/69; PULSE 76; RESP 14; O2SAT 99
== END 2020-09-24 16:30 | disposition home or self-care (01) ==
PROVIDERS: Emergency Provider Emergency Medicine; PCP Internal Medicine
DX: R11.2 Nausea with vomiting, unspecified (principal); F17.210 Nicotine dependence, cigarettes, uncomplicated
CPT/HCPCS: 80053; 83690; 85025; 96374; 99284; A4216; J2405

== ENCOUNTER → 2020-12-10 | Outpatient (CLI) | payer MEDICAID, SELFPAY ==
[2020-12-10 10:02] LABS: Mucous, Urine 0 SEEN /hpf (<or=2+)
[2020-12-10 12:37] LABS: Color, Urine Yellow (Yellow); Glucose, Dipstick Normal (Normal); Ketone-Dipstick Negative (Negative); Leukocyte Esterase-Dipstick 25 /ul (Negative); Nitrite-Dipstick Negative (Negative); Occult Blood-Urine 50 /ul (Negative); Protein-Dipstick 15 mg/dl (Negative); Specific Gravity, Urine 1.015 (1.002-1.030); Urine Bilirubin Dipstick Negative (Negative); Urine Clarity Clear (Clear); Urine Urobilinogen 1 mg/dl (Normal)
[2020-12-10 12:51] LABS: Bacteria 1+ /hpf (None Seen); Red Blood Cells-Urine 0-5 SEEN /hpf (0-5); Squamous Epithelial Cells - UA 0-5 SEEN /hpf (5-10); White Blood Cells 10-25 SEEN /hpf (0-5)
== END | disposition home or self-care (01) ==
LOC: LABSPEC 10:01
PROVIDERS: PCP Internal Medicine; Referring Provider Physician Assistant; Visit Provider Physician Assistant
DX: R35.0 Frequency of micturition (principal)
CPT/HCPCS: 81001; 87086

== ENCOUNTER → 2020-12-31 | Outpatient (CLI) | payer MEDICAID, SELFPAY ==
[2020-12-31 14:02] LABS: Mucous, Urine 0 SEEN /hpf (<or=2+)
[2020-12-31 15:12] LABS: Color, Urine Yellow (Yellow); Glucose, Dipstick Normal (Normal); Ketone-Dipstick 5 mg/dl (Negative); Leukocyte Esterase-Dipstick 100 /ul (Negative); Nitrite-Dipstick Positive (Negative); Occult Blood-Urine 150 /ul (Negative); Protein-Dipstick 30 mg/dl (Negative); Urine Bilirubin Dipstick Negative (Negative); Urine Clarity Sl. Cloudy (Clear); Urine Urobilinogen Normal (Normal)
[2020-12-31 15:27] LABS: Red Blood Cells-Urine 10-25 SEEN /hpf (0-5); White Blood Cells 50-100 SEEN /hpf (0-5)
[2020-12-31 15:28] LABS: Bacteria 2+ /hpf (None Seen); Squamous Epithelial Cells - UA 0-5 SEEN /hpf (5-10)
== END | disposition home or self-care (01) ==
LOC: LABSPEC 14:02
PROVIDERS: PCP Internal Medicine; Referring Provider Physician Assistant; Visit Provider Physician Assistant
DX: R30.0 Dysuria (principal)
CPT/HCPCS: 81001; 87070; 87077; 87086; 87088; 87186; 87205

== ENCOUNTER → 2021-01-01 07:32 | Outpatient (CLI) | payer MEDICAID, SELFPAY ==
--- NOTE | 2021-01-01 07:37 | CT_ITS ---
STUDY: CT ABDOMEN AND PELVIS WITHOUT CONTRAST REASON FOR EXAM: Female, 40 years old. Dysuria, abdominal pain. Hematuria. RADIATION DOSAGE (If Supplied By Facility): CTDIvol = ( 7.34 ) mGy, DLP = ( 357.67 ) mGycm TECHNIQUE: Transaxial images were obtained from the dome of the diaphragm to the symphysis pubis without oral contrast, and without intravenous contrast. Sagittal and coronal images were reconstructed. Individualized dose optimization techniques were used for this CT. COMPARISON: Comparison is made with prior study dated 09/19/2019. FINDINGS: The visualized lung bases are unremarkable. The visualized portions of the heart are within normal limits. Normal liver. Normal gallbladder and extrahepatic biliary system. Normal spleen. Normal pancreas. Normal bilateral adrenal glands. Normal right kidney. Normal left kidney. Normal visualized stomach. Normal small intestine. Moderate amount of fecal material is seen in the colon. The appendix is visualized and appears normal. Normal abdominal aorta. Normal inferior vena cava. Normal retroperitoneum. The urinary bladder is not adequately distended. A calcified phlebolith is seen in the right hemipelvis. Normal abdominal wall. Mild degree of disc space narrowing and disc degeneration at the L5-S1 level. CT/Abdomen/Pelvis without Cont IMPRESSION: Moderate amount of fecal material is seen in the colon. No acute abnormality is seen. Electronically Signed: John Jones MD at 10:11 EDT , Service support ,
== END ==
PROVIDERS: PCP Internal Medicine; Visit Provider Physician Assistant
DX: R35.0 Frequency of micturition (principal); R30.0 Dysuria; R10.9 Unspecified abdominal pain; Z87.442 Personal history of urinary calculi
CPT/HCPCS: 74176

== ENCOUNTER 2021-06-30 09:30 | Outpatient (CLI) | payer MEDICAID, SELFPAY ==
[2021-06-30 10:21] LABS: Absolute Lymphocyte Count 1.18 X10^3/uL (0.83-4.51); Absolute Neutrophil Count 1.8 X10^3/uL (2.0-7.7); Basophil# 0.02 X10^3/uL; Basophil% 0.6 % (0-1); Eosinophil# 0.09 X10^3/uL; Eosinophils% 2.6 % (0-5); Hematocrit 38.4 % (37-47); Hemoglobin 12.7 g/dL (12.0-15.0); Lymphocyte # 1.18 X10^3/ul (0.83-4.51); Lymphocyte % 34.7 % (19-41); Mean Corp Hgb Conc 33.1 g/dL (32-36); Mean Corpuscular Volume 90.8 fL (81-99); Mean Platelet Vol. 12.8 fl (6.2-12.0); Monocyte# 0.27 X10^3/uL; Monocyte% 7.9 % (0-10); NRBC Flagged by Analyzer 0 % (0-5); Neutrophil # 1.84 X10^3/uL (2.7-7.7); Neutrophil % 54.2 % (47-70); Platelet Count 126 K/mm3 (150-450); RBC Distribution Width CV 12.7 % (11.6-14.6); RBC Distribution Width SD 41.8 fl (35.1-43.9); Red Blood Count 4.23 M/mm3 (4.2-5.4); White Blood Count 3.4 K/mm3 (4.4-11.0)
[2021-06-30 10:56] LABS: Thyroid Stim Hormone (TSH) 1.07 uIU/mL (0.358-3.74)
== END 2021-06-30 23:59 | disposition home or self-care (01) ==
LOC: LAB 09:31
PROVIDERS: PCP Internal Medicine; Referring Provider Nurse Practitioner Women's Health; Visit Provider Nurse Practitioner Women's Health
DX: R10.2 Pelvic and perineal pain (principal); Z13.29 Encounter for screening for other suspected endocrine disorder
CPT/HCPCS: 36415; 84443; 85025

== ENCOUNTER 2021-07-02 13:03 | Outpatient (CLI) | payer MEDICAID, SELFPAY ==
--- NOTE | 2021-07-02 13:05 | US_ITS ---
STUDY: ULTRASOUND OF THE FEMALE PELVIS - COMPLETE REASON FOR EXAM: Female, 41 years old. pain TECHNIQUE: Endovaginal. Transvaginal US was obtained to better visualized the ovaries. COMPARISON: None. FINDINGS: The uterus is anteverted and is in a midline position. The uterus measures 7.6x4.6 cm. Normal uterine cervix. The endometrium measures 2 mm in thickness, and is hyperechoic. There is no demonstrated endometrial mass. There is no demonstrated myometrial mass. I.U.D. - The patient does not have an I.U.D. The right ovary is visualized. The right ovary measures 1.9 cm. There is no right ovarian cyst or ovarian mass. There is no visualized right adnexal mass or complex lesion. There is normal arterial and normal venous vascularity. The left ovary is visualized. The left ovary measures 2.4 cm. There is no left ovarian cyst or ovarian mass. There is no visualized left adnexal mass or complex lesion. There is normal arterial and normal venous vascularity. There is no fluid in the cul-de-sac. US/Transvaginal Non- IMPRESSION: Normal female pelvis. Electronically Signed: Joseluis Huizar MD at 16:52 EDT Reading Location ID and State: [facility] / [place] , Service support ,
--- NOTE | 2021-07-02 13:05 | US_ITS ---
STUDY: ULTRASOUND OF THE FEMALE PELVIS - COMPLETE REASON FOR EXAM: Female, 41 years old. pain TECHNIQUE: Endovaginal. Transvaginal US was obtained to better visualized the ovaries. COMPARISON: None. FINDINGS: The uterus is anteverted and is in a midline position. The uterus measures 7.6x4.6 cm. Normal uterine cervix. The endometrium measures 2 mm in thickness, and is hyperechoic. There is no demonstrated endometrial mass. There is no demonstrated myometrial mass. I.U.D. - The patient does not have an I.U.D. The right ovary is visualized. The right ovary measures 1.9 cm. There is no right ovarian cyst or ovarian mass. There is no visualized right adnexal mass or complex lesion. There is normal arterial and normal venous vascularity. The left ovary is visualized. The left ovary measures 2.4 cm. There is no left ovarian cyst or ovarian mass. There is no visualized left adnexal mass or complex lesion. There is normal arterial and normal venous vascularity. There is no fluid in the cul-de-sac. US/Pelvic (Non ) IMPRESSION: Normal female pelvis. Electronically Signed: Joseluis Huizar MD at 16:52 EDT ,
--- NOTE | 2021-07-02 13:36 | BI_ITS ---
MAMMOGRAPHY - BILATERAL SCREENING 3-D TOMOSYNTHESIS REASON FOR EXAM: Female, 41 years old. screening for breast cancer PERTINENT HISTORY: No significant family history. TECHNIQUE: 2-D mammograms and 3-D Tomosynthesis of the breast (s) were performed. CAD was performed. COMPARISON: 07/01/2020 FINDINGS: The breast composition is heterogeneously dense that can obscure small breast masses. Scattered benign calcifications are seen. No dense spiculated masses or suspicious microcalcifications are identified. No architectural distortion is identified. There is no skin thickening or retraction. There has been no significant change since the prior study. BI/SCRN MAMM (CAD)W/JAIR BILAT IMPRESSION: No mammographic signs of malignancy. Routine yearly mammograms recommended. ASSESSMENT CATEGORY: BIRADS Category 1: Negative. A letter regarding these results will be sent to the patient by the facility within 30 days. FOLLOW UP RECOMMENDATION: Yearly follow up mammogram recommended. (A) Approximately 10% of breast cancers are not detected by mammography. A normal mammogram should not delay biopsy of a clinically suspicious abnormality. Electronically Signed: Tobin Jackson MD at 14:11 EDT ,
[2021-07-02 14:42] LABS: International Normalized Ratio 1.1; Prothrombin Time (Protime)PT. 13.1 SECONDS (11.7-14.9)
[2021-07-02 14:46] LABS: Erythrocyte Sedimentation Rate 11 mm/hr (0-30)
[2021-07-02 14:59] LABS: Hemoglobin A1c 5.2 % (3.8-5.6)
[2021-07-02 15:02] LABS: ALB/GLOB Ratio 1.1 RATIO (0.9-2.4); AST(SGOT) 10 U/L (15-37); Alanine Aminotransfer ALT/SGPT 13 U/L (13-56); Albumin, Serum 4.1 g/dL (3.2-5.0); Alkaline Phosphatase 43 U/L (45-117); Anion Gap 2 (5-15); BUN 16 mg/dL (7-18); BUN/Creat Ratio 15.4 RATIO (10-20); CRP < 2.90 mg/L (0.0-3.0); Calcium,Total 9.3 mg/dL (8.5-10.1); Chloride 110 mmol/L (98-107); Creatinine, Serum 1.04 mg/dL (0.55-1.02); EST Glomerular Filtration Rate 62 mL/min (>60); Est Glom Filt Rate - Afr Amer 75 mL/min (>60); Ferritin 44 ng/mL (8-252); Globulin 3.6 g/dL (2.2-4.2); Glucose 84 mg/dL (74-106); LDH 179 U/L (84-246); Potassium 3.9 mmol/L (3.5-5.1); Protein, Total 7.7 g/dL (6.4-8.2); Sodium Level 139 mmol/L (136-145)
[2021-07-05 14:09] LABS: Anti-Centromere B Ab <0.2 AI (0.0-0.9); Anti-Chromatin <0.2 AI (0.0-0.9); Anti-Jo <0.2 AI (0.0-0.9); Anti-Scleroderma-70 AB <0.2 AI (0.0-0.9); RNP Ab <0.2 AI (0.0-0.9); SJOGREN'S Anti-SS-A test < 0.2 AI (0.0-0.9); SJOGREN'S Anti-SS-B test < 0.2 AI (0.0-0.9); Smith Ab <0.2 AI (0.0-0.9)
[2021-07-05 17:56] LABS: Anti-Mitochondrial AB <20.0 Units (0.0-20.0); Anti-dsDNA Ab 8 IU/mL (0-9)
[2021-07-08 12:09] LABS: Angiotensin Convert Enzyme 31 U/L (14-82); Ceruloplasmin 21.4 mg/dL (19.0-39.0); Cytoplasmic Ab (C-ANCA) <1:20 titer (Neg:<1:20); Endomysial Antibody IgA Negative (Negative); Immunoglobulin A 123 mg/dL (87-352)
[2021-07-08 14:49] LABS: AFP, Tumor Marker 5.4 ng/mL (0.0-6.4); Anti-Smooth Muscle ABS 15 Units (0-19); Copper, Serum or Plasma 94 ug/dL (80-158); Haptoglobin 133 mg/dL (42-296); Perinuclear Ab (P-ANCA) <1:20 titer (Neg:<1:20); t-Transglutaminase IgA <2 U/mL (0-3)
== END 2021-07-02 23:59 | disposition home or self-care (01) ==
PROVIDERS: Nurse Practitioner Adult Health; PCP Internal Medicine; Visit Provider Internal Medicine Gastroenterology
DX: Z12.31 Encounter for screening mammogram for malignant neoplasm of breast (principal); Q79.60 Ehlers-Danlos syndrome, unspecified; K59.09 Other constipation; K76.0 Fatty (change of) liver, not elsewhere classified; Z86.19 Personal history of other infectious and parasitic diseases; R10.2 Pelvic and perineal pain
CPT/HCPCS: 36415; 76830; 76856; 77063; 77067; 80053; 82105; 82140; 82164; 82248; 82390; 82525; 82728; 82784; 83010; 83036; 83516; 83615; 85610; 85652; 86140; 86225; 86235; 86255; 86256; 93976

== ENCOUNTER 2021-07-12 12:38 | Outpatient (CLI) | payer MEDICAID, SELFPAY ==
--- NOTE | 2021-07-12 12:43 | RAD_ITS ---
STUDY: X-RAY - ABDOMEN/PELVIS REASON FOR EXAM: Female, 41 years old. Constipation, sitz marker day 3 TECHNIQUE: Single AP view of the abdomen / pelvis. COMPARISON: None. FINDINGS: There is an abundance of fecal material throughout the colon. The predominance of the Sitz markers is in the cecum and ascending colon. 2 markers are seen in the rectal region. The visualized liver, spleen and kidneys are grossly normal in size and morphology. Normal soft tissue structures. Normal visualized osseous structures. RAD/Abdomen Single View IMPRESSION: Large amount of fecal material is seen in the colon. The majority of Sitz markers are seen in the cecum and ascending colon. Electronically Signed: John Jones MD at 13:29 EDT ,
== END 2021-07-12 23:59 | disposition home or self-care (01) ==
PROVIDERS: PCP Internal Medicine; Referring Provider Nurse Practitioner Adult Health; Visit Provider Nurse Practitioner Adult Health
DX: K59.09 Other constipation (principal)
CPT/HCPCS: 74018

== ENCOUNTER 2021-07-14 12:47 | Outpatient (CLI) | payer MEDICAID, SELFPAY ==
--- NOTE | 2021-07-14 12:48 | RAD_ITS ---
STUDY: X-RAY - ABDOMEN/PELVIS REASON FOR EXAM: Female, 41 years old. constipation, sitz marker day 5 TECHNIQUE: Single frontal view of the abdomen. COMPARISON: None. FINDINGS: Lung bases are not included. No demonstrated free abdominal air. No gross organomegaly. No suspicious calcifications. The visualized liver, spleen and kidneys are grossly normal in size and morphology. There is moderate stool throughout the colon and over the rectum. There are also multiple small metallic surgical structures and presumed large hernia repair. No evidence of dilated small bowel. RAD/Abdomen Single View IMPRESSION: Prominent stool throughout the colon and rectum, presumed constipation. No dilated small bowel or other suspicious findings. Electronically Signed: Tess Vargas MD at 21:01 EDT ,
== END 2021-07-14 23:59 | disposition home or self-care (01) ==
LOC: MTRAD 12:48
PROVIDERS: PCP Internal Medicine; Visit Provider Nurse Practitioner Adult Health
DX: K59.09 Other constipation (principal)
CPT/HCPCS: 74018

== ENCOUNTER 2021-07-20 08:46 | Outpatient (CLI) | payer MEDICAID, SELFPAY ==
[2021-07-20] VITALS (12 sets, daily range): BP systolic 95–120; BP diastolic 52–78; PULSE 65–85; RESP 12–19; TEMP 36.6; O2SAT 100; BMI 25.4
--- NOTE | 2021-07-20 | LIVB_PTH ---
PATIENT: KURT HARRY LOC: CT U#:[id number] AGE/SX: 41/F ROOM: RE07/20/[address]: DESTIN Sevilla : 1980 BED: DIS: 07/20/2021 SPEC #: [id number] RECD: 07/20/21 10:22 STATUS: EDDIE RENarcisa #: [id number] KANDIS: 07/20/21 00:[address]: Aiyana Lucio NP DEPT: SURGICAL PATHOLOGY RECD BY: Doris Cerna ENTERED: 07/20/21 11:09 SP TYPE: LIVER BX OTHR DR: Dr. Mirta rCoss MD Tissues: Liver, NOS Procedures: PAS with Diastase (control) Trichrome (control) Special Stain Group II PAS Stain (control) Surgery Specimen Level V Retic (control) Iron Stain (control) HEADER OPERATION: CT-guided liver biopsy PRE-OP DIAGNOSIS: Liver fibrosis TISSUE SUBMITTED: Liver 18-gauge core biopsy x3 MICROSCOPIC DIAGNOSIS Liver, core biopsy: Liver parenchymal tissue with focal mild portal chronic inflammation. See microscopic description and comment. Jaci 07/21/2021 COMMENT Correlation with clinical, laboratory findings and appropriate follow up are necessary. Case has been reviewed in consultation with Dr. Salazar who concurs with the above diagnosis. IDC:RAFAEL MICROSCOPIC DESCRIPTION Slides are reviewed. The specimen shows liver parenchymal tissue with preserved lobular architecture. Hepatocytes are essentially unremarkable. Focal dilatation of sinusoid is noted. Portal area shows mild chronic inflammation which predominantly consists of lymphocytes. Interface information is not seen. Iron stain shows absent iron. Trichrome and reticulin stains are unremarkable. Portal area shows minimal portal fibrosis. PAS stain with and without diastase do not show an abnormal accumulation of protein. All stains are performed with appropriate matched controls. GROSS DESCRIPTION Received is one container labeled with the patient's name and not further designated. The specimen consists of four elongated fragments of miller soft tissue measuring 1 to 2 cm in length and 0.1 cm in diameter. The specimen is totally submitted in one cassette. / DEACON:luisa 07/20/2021 TC:3 CPT: 16884, 61967 x5
--- NOTE | 2021-07-20 08:54 | CT_ITS ---
PROCEDURE: CT DIRECTED CORE LIVER BIOPSY INDICATION: Female, 41 years old. F4 Metavir, hx hepatitis C PHYSICIAN: Dr. EMMANUELLE SAUCEDA CONSENT: Written informed consent was obtained having explained the risks, benefits and alternatives in detail with the patient who accepted the risks and agreed to proceed. Laboratory review and clinical assessment was performed. RADIATION DOSAGE (If Supplied By Facility): CTDIvol = ( 17 ) mGy, DLP = ( 288.71 ) mGycm Individualized dose optimization techniques were used for this CT. TECHNIQUE: Using CT image guidance with image documentation, a suitable location in the left lobe of the liver was identified. Using an anterior approach, puncture of the liver was uneventful with an 18-gauge core needle system. 3, 18-gauge core samples were obtained, and submitted in formalin to the pathologist for further assessment. Followup CT scan revealed no distinct sequelae. CT/Biopsy/Inj or Needle Placement IMPRESSION: 1. CT directed core needle biopsy of the liver, using CT image guidance with image documentation as described. Electronically Signed: John Jones MD at 10:27 EDT ,
[2021-07-20 08:57] LABS: Platelet Count 127 K/mm3 (150-450)
[2021-07-20 09:05] LABS: Prothrombin Time (Protime)PT. 12.5 SECONDS (11.7-14.9)
[2021-07-20 09:06] LABS: Partial Thromboplast Time 32.4 Seconds (24.1-36.2)
[2021-07-20] MEDS: Lidocaine 2% (20 ml mdv) 20 ML Vial INFILT (10:05)
== END 2021-07-20 23:59 | disposition home or self-care (01) ==
LOC: CT 08:46
PROVIDERS: PCP Internal Medicine; Referring Provider Nurse Practitioner Adult Health; Visit Provider Nurse Practitioner Adult Health
DX: K74.00 Hepatic fibrosis, unspecified (principal); Z86.19 Personal history of other infectious and parasitic diseases
CPT/HCPCS: 47000; 36415; 77012; 85049; 85610; 85730; 88307; 88313; J7040

== ENCOUNTER 2021-08-23 09:44 | Day surgery (SDC) | payer MEDICAID, SELFPAY ==
[2021-08-23] VITALS (7 sets, daily range): BP systolic 86–107; BP diastolic 22–72; PULSE 66–94; RESP 14–16; TEMP 36.5–37.2; O2SAT 100; BMI 25.2
[2021-08-23] MEDS: Lactated Ringers 1,000 ML 15 ML IV (10:26)
--- NOTE | 2021-08-23 10:28 | HP.PCM_ITS ---
History and Physical Date of Admission: 08/23/21 HPI Details: I discussed lab results with pt. Slight elevated creatinine 1.04, chronically slightly high. Platelets are low which is consistent with cirrhosis. We discussed her F4 liver fibrosis score which probably indicates cirrhosis. We will get liver biopsy. Will try lactulose for her constipation after she does sitz markers study. I ordered hep C RNA quant, will plan on getting that annually. Doesn't drink alcohol or consume acetaminophen. Case discussed in detail with Dr Le. She needs hysterectomy. Per the [facility] transplant medicine postoperative mortality risk in patients with cirrhosis calculator for use by healthcare providers, her 7-day postop probability of mortality is 1.065%, 30 days is 4.3%, 90 days is 6.8%, 1 year is 15.5%, 5 years is 37%. With abdominal surgery she would be at risk for spontaneous bacterial peritonitis. Meld score is 8. Child Webb score for cirrhosis mortality is 5 which is Child Class A. 07/09/21 1641<Electronically signed by Aiyana Lucio NP WILDLIFE BIOLOGY TECHNICIAN-C>Date Aiyana Lucio NP WILDLIFE BIOLOGY TECHNICIAN-C cc: DESTIN Brown; Dr. Mirta Cross MD; Dr. Meagan Mejia MD ~*Signed Intake Intake Visit Reasons: Consult Allergies No Known Allergies Allergy (Verified 07/01/21 15:22) Medications polyethylene glycol 3350 17 g DAILY PRN 09/24/20 [History Confirmed 07/01/21] [facility] Medical History Atrial fibrillation Cardiac arrest Cardiomyopathy in disease classified elsewhere Chronic constipation Coma Diverticula of colon Susannah-Danlos disease Encounter for Essure implantation Fatty liver Hepatitis History of abdominal pain Hx of hepatitis C Substance abuse Superficial thrombophlebitis Surgical History History of tonsillectomy and adenoidectomy Hx of bilateral salpingectomy S/P laparoscopic procedure Family History Mother Heart disease CHF Hypertension Abdominal aortic aneurysm Other Alcoholism Arthritis Autoimmune disorder Osteoporosis Respiratory disease Social History household members: spouse Smoking Status: Former smoker quit date: 08/15/20 pack-years: 27 second hand exposure: Yes alcohol intake: never substance use type: heroin, methamphetamine and other details: has not used 115 days caffeine: Yes Type: coffee what type of physical activity do you participate in: walking and yoga frequency: daily seatbelt use: always do you feel safe at home: Yes Female Reproductive History Menstrual Ab spontaneous: 2 HPI HPI Details: KURT HARRY, is a 41 F who presents to the office today for chronic constipation. This is a lifelong problem. Only has a BM every 10-14 days. Doesn't feel like she evacuates fully. Gets lots of abd pain. She tries to eat healthfully, she cooks every day. Sometimes sees some blood along the stool. No black tarry stools. Bowels move right before her menses start, that's the only day of the month that she has a normal BM. Miralax not helping like it used to. She is trying Metamucil bars, the extra fiber does help. Never uses miralax or fiber regularly, just takes intermittently. Hasn't used dulcolax. Hasn't used enema at home, but one was used before her colonoscopy to finish cleaning out her colon. Minimal relief with docusate. She uses magnesium citrate occas but no relief, no BM at all. No Rx med for constipation. No heartburn, acid reflux, CP. She had a colonoscopy in 2007, never went back for results. That year was the start of 10 yrs of serious drug abuse. Her daughter at 8 days old in 2007, she had Susannah Danlos. Pt has Susannah Danlos. Another daughter has RA, currently 21 yo, was diagnosed at 14 yo. Mother has RA and multiple aneurysms. Her father has chronic constipation. 01/01/21 CT abd pel: Moderate amount of fecal material is seen in the colon. No acute abnormality is seen. Has endometriosis, being evaluated by [facility], hoping to have hysterectomy. Dislikes taking meds since she got sober. Hx hepatitis C which was treated in 07/2019, Genotype 3; no longer detectable 12/2019. Fibroscan F4 (cirrhosis) in 2020 (this report is scanned into chart) ROS Const Constitutional: No fatigue, fever(s), headache(s), weight change (gain), sleep problems, abnormal sleep pattern or change in appetite Eyes Eyes: Positive for blurry vision, irritation and eye pain ENT ENT: No headache(s), difficulty swallowing, hoarseness or sore throat Resp Respiratory: No cough, hemoptysis or shortness of breath Cardio Cardiology: No chest pain at rest or generalized swelling Gastro GI: Positive for abdominal pain, bloating and constipation; No belching, change in bowel habits, change in stool character, coffee ground emesis, cramping, diarrhea, heartburn, difficulty swallowing, feeling full early, excessive flatus, incontinent of stools, Vomiting blood/hematemesis, Blood in stool, loose stools, Black,tarry stools, nausea/dyspepsia, pain with swallowing or vomiting Musc Musculoskeletal: No joint pain, back pain, joint swelling, numbness or tingling Skin Skin: No itchy eyes or rash Neuro Neurology: No behavioral changes, confusion, headache(s), numbness or tingling Psych Psychiatric: No abnormal sleep pattern, No anxiety, No behavioral changes, No change in appetite, No confusion and No depression Endo Endocrine: No cold intolerance, fatigue, heat intolerance, increased thirst/drinking or weight change (gain) Aller/Imm Allergy/Immunologic: No food intolerance or itchy eyes Rafael/Lymp Hematologic/Lymphatic: No easy bleeding, easy bruising or enlarged lymph nodes Exam Const General: cooperative, healthy appearing, no acute distress, well developed and well groomed Eyes Conjunctivae: conjunctivae normal Sclera: sclerae normal Resp Effort & Inspection: normal respiratory effort GI Inspection: normal to inspection Palpation: soft, no hepatosplenomegaly and tender in the LLQ and in the RLQ Skin General: no rashes or lesions noted Quality Reporting Tobacco Screening ([facility] 138) Smoking Status: Former smoker Assessment and Plan Assessment and Plan (1) Chronic constipation: Status: Chronic (2) Hx of hepatitis C: Status: Acute (3) Fatty liver: Status: Acute Orders: Orders: Comprehensive Metabolic Profil Today K59.09, Z86.19, K76.0 CRP Today K59.09, Z86.19, K76.0 Ferritin Today K59.09, Z86.19, K76.0 LDH Today K59.09, Z86.19, K76.0 Liver Profile Today K59.09, Z86.19, K76.0 Hemoglobin A1c Today K59.09, Z86.19, K76.0 Prothrombin Time w/INR Today K59.09, Z86.19, K76.0 Erythrocyte Sed Rate Today K59.09, Z86.19, K76.0 Anti-Mitochondrial AB Today K59.09, Z86.19, K76.0 ESTHER Comprehensive Panel Today K59.09, Z86.19, K76.0 Angiotensin Convert Enzyme Today K59.09, Z86.19, K76.0 ANCA Today K59.09, Z86.19, K76.0 Anti-Smooth Muscle ABS Today K59.09, Z86.19, K76.0 Celiac Disease Profile Today K59.09, Z86.19, K76.0 Ceruloplasmin Today K59.09, Z86.19, K76.0 Copper, Serum or Plasma Today K59.09, Z86.19, K76.0 Haptoglobin Today K59.09, Z86.19, K76.0 AFP, Tumor Marker Today K59.09, Z86.19, K76.0 Ammonia Today K59.09, Z86.19, K76.0 Abdomen Single View Today K59.09 Abdomen Single View Today K59.09 Plan: 41 yr old female with lifelong chronic constipation with comorbidities that include endometriosis, Susannah Danlos, hx of hepatitis C treated in 2020, hx of drug abuse now sober, abnormal liver elastography in 2020, strong FH autoimmune disease. Our conversation today focused primarily on constipation. We briefly addressed hx of hep C and abnormal liver elastography. She will get labs drawn today. We will do sitz markers test. She is scheduled for colonoscopy on August 23, will have 2 wk f/u after that. After her appt I reviewed images from CT abd pel w/o contrast from [address] Le--dilated rectum, ?Hirschsprung disease. Would need deep rectal biopsy. May need anorectal manometry. We discussed her liver elastography result of F4 indicating cirrhosis; pt probably not aware of severity of liver disease; I will discuss with her when I have lab results back. I will need to discuss with her to avoid all acetaminophen and alcohol. She needs AFP every 6 mos due to risk of liver cancer from hx hep C. She needs hep C RNA quant yearly so we will need to order that for next round of labs. Coding I have re-examined the patient. There are no clinical changes since date of exam.
--- NOTE | 2022-01-14 06:41 | OP.COLON_ITS ---
Patient Name: Aylin Peterson Procedure Date: 08/23/2021 10:25 AM Date of : 1980 Age: 41 Procedure: Colonoscopy Indications: Generalized abdominal pain, Change in bowel habits, Change in stool caliber, Chronic idiopathic constipation Providers: Yvan Le DO Medicines: Monitored Anesthesia Care Patient Profile: This is a 41 year old female. Refer to note in patient chart for documentation of history and physical. Last Colonoscopy: none. The patient's first colonoscopy is today. Complications: No immediate complications. Procedure: Pre-Anesthesia Assessment: - Prior to the procedure, a History and Physical was performed, and patient medications and allergies were reviewed. The risks and benefits of the procedure and the sedation options and risks were discussed with the patient. All questions were answered and informed consent was obtained. Patient identification and proposed procedure were verified by the physician in the pre-procedure area. Mental Status Examination: alert and oriented. Airway Examination: normal oropharyngeal airway and neck mobility. Respiratory Examination: clear to auscultation. CV Examination: normal. Prophylactic Antibiotics: The patient does not require prophylactic antibiotics. Prior Anticoagulants: The patient has taken no previous anticoagulant or antiplatelet agents. ASA Grade Assessment: II - A patient with mild systemic disease. After reviewing the risks and benefits, the patient was deemed in satisfactory condition to undergo the procedure. The anesthesia plan was to use moderate sedation / analgesia (conscious sedation). Immediately prior to administration of medications, the patient was re-assessed for adequacy to receive sedatives. The heart rate, respiratory rate, oxygen saturations, blood pressure, adequacy of pulmonary ventilation, and response to care were monitored throughout the procedure. The physical status of the patient was re-assessed after the procedure. After I obtained informed consent, the scope was passed under direct vision. Throughout the procedure, the patient's blood pressure, pulse, and oxygen saturations were monitored continuously. The Colonoscope was introduced through the anus and advanced to the terminal ileum. The colonoscopy was performed without difficulty. The patient tolerated the procedure well. The quality of the bowel preparation was unsatisfactory. Scope In: 10:51:12 AM Scope Withdrawal Time 0 hours 7 minutes 22 seconds Scope Out: 11:07:46 AM Total Procedure Duration Time 0 hours 16 minutes 34 seconds Findings: The perianal and digital rectal examinations were normal. A large amount of stool was found in the rectum, in the recto-sigmoid colon, in the sigmoid colon, in the descending colon, at the splenic flexure, in the transverse colon, at the hepatic flexure, in the ascending colon and in the cecum, precluding visualization. Lavage of the area was performed using 50 - 200 mL of sterile water, resulting in incomplete clearance with continued poor visualization. The exam was otherwise without abnormality on direct and retroflexion views. Impression: - Preparation of the colon was unsatisfactory. - Stool in the rectum, in the recto-sigmoid colon, in the sigmoid colon, in the descending colon, at the splenic flexure, in the transverse colon, at the hepatic flexure, in the ascending colon and in the cecum. - The examination was otherwise normal on direct and retroflexion views. - No specimens collected. Recommendation: - Discharge patient to home. - Resume previous diet. - Continue present medications. - No recommendation at this time regarding repeat colonoscopy. Procedure Code(s): --- Professional --- 63646, Colonoscopy, flexible; diagnostic, including collection of specimen(s) by brushing or washing, when performed (separate procedure) CPT copyright 2017 [employer]. All rights reserved. The codes documented in this report are preliminary and upon concrete form setter and finisher review may be revised to meet current compliance requirements. Yvan Le DO 08/23/2021 11:18:04 AM This report has been signed electronically. Number of Addenda: 1 Note Initiated On: 08/23/2021 10:25 AM Addendum Number: 1 Addendum Date: 01/14/2022 6:26:44 AM MAC was used as sedation for this procedure. Yvan Le DO 01/14/2022 6:26:48 AM This report has been signed electronically.
--- NOTE | 2022-01-14 06:41 | OP.CCLET_ITS ---
01/14/2022 Mirta Cross MD [address] [place] [address] [place] [address] Re : Colonoscopy procedure for Aylin Peterson Dear Dr. Cross This procedure was performed on Monday, August 23, 2021. My impressions and recommendations are as follows: Impressions : - Preparation of the colon was unsatisfactory. - Stool in the rectum, in the recto-sigmoid colon, in the sigmoid colon, in the descending colon, at the splenic flexure, in the transverse colon, at the hepatic flexure, in the ascending colon and in the cecum. - The examination was otherwise normal on direct and retroflexion views. - No specimens collected. Recommendations : - Discharge patient to home. - Resume previous diet. - Continue present medications. - No recommendation at this time regarding repeat colonoscopy. My findings are described in the full procedure note, which is enclosed. If I can be of further assistance, please feel free to contact me at . Sincerely, Yvan Le DO 08/23/2021 11:18:04 AM This report has been signed electronically.
== END 2021-08-23 12:06 | disposition home or self-care (01) ==
LOC: EN 09:46 → AC 09:46
PROVIDERS: PCP Internal Medicine; Referring Provider Internal Medicine; Visit Provider Internal Medicine Gastroenterology
PROC: 0DJD8ZZ Inspection of Lower Intestinal Tract, Via Natural or Artificial Opening Endoscopic (ICD-10-PCS; CPT 45378; principal; 2021-08-23 10:40)
DX: K59.09 Other constipation (principal); I48.91 Unspecified atrial fibrillation; K76.0 Fatty (change of) liver, not elsewhere classified; Z87.891 Personal history of nicotine dependence; F11.90 Opioid use, unspecified, uncomplicated; Z86.19 Personal history of other infectious and parasitic diseases; K57.30 Diverticulosis of large intestine without perforation or abscess without bleeding; Q79.60 Ehlers-Danlos syndrome, unspecified
CPT/HCPCS: 45378; 87426; C9803; J7120; J2405

== ENCOUNTER 2021-10-19 16:50 | Observation (INO) | payer MEDICAID, SELFPAY ==
--- NOTE | 2021-10-08 12:28 | EKG12_ITS ---
Test Reason : PRE-OP Blood Pressure : / mmHG Vent. Rate : 061 BPM Atrial Rate : 061 BPM P-R Int : 094 ms QRS Dur : 070 ms QT Int : 410 ms P-R-T Axes : 075 070 057 degrees QTc Int : 412 ms Sinus rhythm with short [place] Otherwise normal ECG Confirmed by BRENDA SAUCEDA, JANELLE ([id number]), purchase request editor ROCK BROWN ([id number]) on 10/11/2021 8:38:59 AM Referred By: Meagan Mejia Confirmed By:JANELLE GUTIERREZ MD
[2021-10-08 13:36] LABS: Absolute Lymphocyte Count 1.61 X10^3/uL (0.83-4.51); Absolute Neutrophil Count 2.3 X10^3/uL (2.0-7.7); Basophil# 0.02 X10^3/uL; Basophil% 0.5 % (0-1); Eosinophil# 0.09 X10^3/uL; Eosinophils% 2.1 % (0-5); Hematocrit 37.6 % (37-47); Hemoglobin 12.6 g/dL (12.0-15.0); Lymphocyte # 1.61 X10^3/ul (0.83-4.51); Lymphocyte % 37.5 % (19-41); Mean Corp Hgb Conc 33.5 g/dL (32-36); Mean Corpuscular Hgb 30.3 pg (27.0-32.0); Mean Corpuscular Volume 90.4 fL (81-99); Mean Platelet Vol. 12.7 fl (6.2-12.0); Monocyte# 0.31 X10^3/uL; Monocyte% 7.2 % (0-10); NRBC Flagged by Analyzer 0 % (0-5); Neutrophil # 2.26 X10^3/uL (2.7-7.7); Neutrophil % 52.7 % (47-70); Platelet Count 131 K/mm3 (150-450); RBC Distribution Width SD 43.2 fl (35.1-43.9); Red Blood Count 4.16 M/mm3 (4.2-5.4); White Blood Count 4.3 K/mm3 (4.4-11.0)
[2021-10-08 13:43] LABS: Prothrombin Time (Protime)PT. 13.1 SECONDS (11.7-14.9)
[2021-10-08 14:02] LABS: ALB/GLOB Ratio 1.2 RATIO (0.9-2.4); AST(SGOT) 9 U/L (15-37); Alanine Aminotransfer ALT/SGPT 12 U/L (13-56); Alkaline Phosphatase 38 U/L (45-117); Anion Gap 6 (5-15); BUN 15 mg/dL (7-18); BUN/Creat Ratio 17.3 RATIO (10-20); Calcium,Total 9.3 mg/dL (8.5-10.1); Chloride 108 mmol/L (98-107); Creatinine, Serum 0.87 mg/dL (0.55-1.02); EST Glomerular Filtration Rate 76 mL/min (>60); Est Glom Filt Rate - Afr Amer 92 mL/min (>60); Globulin 3.4 g/dL (2.2-4.2); Glucose 87 mg/dL (74-106); Potassium 3.8 mmol/L (3.5-5.1); Protein, Total 7.4 g/dL (6.4-8.2); Sodium Level 138 mmol/L (136-145)
[2021-10-12 11:08] LABS: Magnesium 2.1 mg/dL (1.6-2.6)
--- NOTE | 2021-10-18 08:04 | PCM.HP.BLA ---
History and Physical Intake Vital Signs ? 08/09/2213:01 10/04/2212:54 10/04/2212:55 Height 5 ft 4 in 5 ft 6 in 5 ft 6 in Weight: ? 156 lb ? BMI ? 25.2 ? BP ? 100/62 ? Intake Visit Reasons:?[facility] Chief Complaint: pre op ERAS Tread Booker Required: No Is patient in pain?: No Allergies No Known Allergies Allergy (Verified 09/06/21 15:36) Medications linaclotide 145 mcg capsule (Linzess) 145 mcg PO QAM #30 caps 07/22/21 [Rx Confirmed 10/04/21] Is last menstrual period known: No Post menopausal: No Patient : No : No [facility] Medical History? Ascites Atrial fibrillation Cardiac arrest Cardiology follow-up encounter Cardiomyopathy in disease classified elsewhere Chronic constipation Coma Diverticula of colon DVT (deep venous thrombosis) Susannah-Danlos disease Encounter for Essure implantation Fatty liver Former smoker Hepatitis Hepatitis C History of abdominal pain History of echocardiogram History of IBS History of stress test Hx of hepatitis C Liver fibrosis Substance abuse Substance abuse Superficial thrombophlebitis Temporary low platelet count Wears partial dentures Surgical History? History of liver biopsy History of tonsillectomy and adenoidectomy Hx of bilateral salpingectomy S/P laparoscopic procedure Family History? Mother Heart disease ?? ? CHF Hypertension Abdominal aortic aneurysmOther Alcoholism Arthritis Autoimmune disorder Osteoporosis Respiratory disease Social History? household members:? spouse Smoking Status:? Former smoker quit date: 08/15/20 pack-years: 27 second hand exposure:? Yes alcohol intake:? never substance use type:? heroin, methamphetamine and other details: quit date 2017 caffeine:? Yes Type: coffee what type of physical activity do you participate in:? walking and yoga frequency:? daily seatbelt use:? always do you feel safe at home:? Yes [facility] Details: KURT HARRY is a 41 year old who presents for preop visit for pelvic pain, endometriosis.? plan [facility] Female Reproductive History Last Menstral Period: 06/15/21 Cycle Length: 21-35 Questions: metorrhagia: No, sexually active: Yes, dyspareunia: No and PCB: No Pregancy History ? ? ? 5 ? Elective abortions ? Hx Para ? ? ? 3 ? Spontaneous abortions ? ? ? 2 Hx # Term Pregnancies ? ? ? 2 ? Ectopic pregnancies ? Hx # Pregnancies ? ? ? 1 ? Multiple births ? # of living children ? ? ? 2 Past Pregnancies Del. Date Name GA/Weeks Outcome Route Bth Weight Infant Gen Labor Lgth Anesthesia Del Locatn Provider FOB Unknown Jacki ? ? 2000 ? Unknown Shakira? ? 2005 ? Unknown Caitlyn? ? 2010 ? 8 days ? ROS Const Constitutional: Denies fatigue, weight gain or weight loss ENT ENT: Reports system reviewed and no additional complaints, except as documented Cardio Card: Denies chest pain Resp Resp: Denies cough or dyspnea on exertion GI GI: Denies abdominal pain, bloating, change in stool character, constipation or vomiting : Reports as per HPI; Denies difficulty voiding, nipple discharge, pelvic pain, urinary frequency, urinary incontinence, urinary urgency, vaginal discharge or vaginal pruritus Musc Musc: Denies arthralgias, back pain or muscle weakness Skin Skin/Breast: Denies alopecia, change in hair, dry skin, breast mass, breast pain, breast skin changes or nipple discharge Neuro Neuro: Reports system reviewed and no additional complaints, except as documented Psych Psych: Reports system reviewed and no additional complaints, except as documented Endo Endo: Denies cold intolerance, excessive sweating, heat intolerance or polydipsia Rafael/Lymph Hematologic/Lymphatic: Denies easy bleeding, Denies easy bruising and Denies lymphadenopathy Exam Const General: cooperative, healthy appearing, no acute distress and well developed Orientation: alert, oriented to person and oriented to place [facility] Head: normal to inspection Ears: hearing grossly normal bilaterally and external ears normal Nose: external nose normal and nares normal Face and sinus: normal facial exam Neck Neck: normal visual inspection Thyroid: thyroid normal Lymphatic: no lymphadenopathy noted Chest Chest palpation & inspection: normal inspection of the chest Resp Effort & Inspection: normal respiratory effort Auscultation: clear to auscultation bilaterally Cardio Rate: regular rate Rhythm: regular rhythm Heart Sounds: S1 normal and S2 normal GI Inspection: normal to inspection and non-distended Palpation: soft, no masses and nontender Rectal Exam: deferred General: bladder normal to palpation External Female Exam: normal external appearance and normal appearance of the urethra Urethra: normal appearance of the urethra and normal palpation Speculum Exam - Vagina: normal appearance of the vagina and normal vaginal discharge Speculum Exam - Cervix: lesion (cystic nodule 6 o clock) Bimanual Exam- Vagina & Uterus: normal bimanual exam, uterine size normal, bladder normal to palpation, uterine shape normal and tender Bimanual Exam- Adnexa, other: normal adnexae, no masses, normal and non-tender Pelvic Support: normal Musc Other: gross motor intact no deficits, full bilateral strength Skin Other: left lower abdomen pigmented lesion patient requested removal Neuro General: patient alert and patient oriented x3 Motor: muscle tone normal throughout Extrem General: normal to inspection and no pedal edema Psych Appearance: grossly normal Mental Status: mental status grossly normal Affect: normal affect Speech and Movement: speech and movement normal Coding Level of Care Code No Charge Diagnoses Pelvic pain? R10.2 Thrombocytopenia? D69.6 Hx of hepatitis C? Z86.19 Skin lesion? L98.9 Assessment and Plan Assessment and Plan (1) Pelvic pain: ?Status:?Acute ?Comment: endometriosis, plan [facility] Dr. Le clearance approved (2) Thrombocytopenia: ?Status:?Acute ?Comment: 125 stable. due to liver fibrosis (3) Hx of hepatitis C: ?Status:?Acute (4) Skin lesion: ?Status:?Acute ?Comment: removal at time of hyst Plan After discussing the patient's diagnosis and treatment plan options, patient wishes to proceed with surgical management.? I have discussed with the patient the risks, benefits, and alternatives of the procedure which include but are not limited to risks of anesthesia, bleeding, infection, possible damage to bowel, bladder, or surrounding vasculature which could lead to additional surgery to evaluate any complications.? Patient agrees to procedure and wishes to proceed.? ACOG/uptodate references given for additional information regarding procedure.? UPDATE- I have seen the patient and performed any clinically relevant updates to the history and physical exam. Meagan Mejia MD
[2021-10-19] VITALS (11 sets, daily range): BP systolic 100–114; BP diastolic 60–83; PULSE 64–76; RESP 14–17; TEMP 36.3–37; O2SAT 97–100; BMI 27.2
[2021-10-19 11:35] LABS: Bedside Glucose 86 mg/dL (74-106)
[2021-10-19] MEDS: Gabapentin 600 MG Tablet PO (11:53)
[2021-10-19] MEDS: Scopolamine 1mg/72hr Patch 1 PATCH TD (11:54)
[2021-10-19] MEDS: Celecoxib 200 MG Capsule 400 MG PO (11:54)
[2021-10-19] MEDS: Phenazopyridine 95 MG Tablet 190 MG PO (11:54)
[2021-10-19] MEDS: dexAMETHasone 10 MG/ML Vial 8 MG IV (12:01)
[2021-10-19] MEDS: Enoxaparin 40 MG/0.4 ML Syringe SC (12:04)
[2021-10-19] MEDS: Lactated Ringers 1,000 ML 40 ML IV ×2 (12:11→17:57)
--- NOTE | 2021-10-19 12:55 | HYST_PTH ---
PATIENT: KURT HARRY LOC: MS3 U#:[id number] AGE/SX: 41/F ROOM: IN322 RE10/19/[address]: Dr. Meagan Mejia MD : 1980 BED: 1 DIS: 10/20/2021 SPEC #: [id number] RECD: 10/19/21 17:22 STATUS: EDDIE VALENZUELA #: [id number] KANDIS: 10/19/21 12:[address]: Meagan Mejia DEPT: SURGICAL PATHOLOGY RECD BY: Doris Cerna ENTERED: 10/20/21 12:09 SP TYPE: HYSTERECT OTHR DR: Dr. Mirta Cross MD Tissues: A - Uterus, NOS Skin of abdomen, NOS Procedures: Surgery Specimen Level IV Surgery Specimen Level V HEADER OPERATION: ERAS, hysterectomy, LAVH, ovarian cystectomy, removal skin lesion PRE-OP DIAGNOSIS: Abnormal uterine bleeding TISSUE SUBMITTED: A ? Cervix, uterus and ovarian cyst, B ? Abdominal skin lesion MICROSCOPIC DIAGNOSIS A. Cervix, uterus and ovarian cyst, hysterectomy and ovarian cystectomy: Cervix ? chronic cystic cervicitis. Endometrium ? early secretory endometrium. Myometrium ? focal superficial adenomyosis. Ovarian cyst ? consistent with fragments of hemorrhagic, physiologic follicular cyst (detached fragments). B. Abdominal skin lesion, biopsy: Seborrheic keratosis. SJ:luisa 10/21/2021 MICROSCOPIC DESCRIPTION Slides are reviewed. GROSS DESCRIPTION A - Received in fixative is one container labeled with the patient's name and designated uterus. The specimen consists of a uterus with attached cervix without attached fallopian tubes or ovaries measuring 6.5 x 5.5 x 4 cm and weighing 90 gm. The ectocervix is grossly unremarkable. The cervical os is oval in contour. The endocervical canal measures 3 cm in length and is grossly unremarkable. The triangular endometrial cavity measures 3.5 x 2.8 cm. The reddish-miller endometrium measures up to 0.2 cm in thickness. The myometrium measures 2.2 cm in average thickness and is free of mass lesions. Present free in the container are two irregular fragments of dark miller soft tissue ranging in size from 1 to 2 cm. Sections reveal reddish-miller cut surfaces. [employer] A[employer] sections are submitted in eight cassettes as follows: 1 - anterior cervix, 2 - posterior cervix, 3 & 4 - anterior uterine wall, 5 & 6 - posterior uterine wall, 7 & 8 - fragments free in container (totally submitted). B - Received in fixative is one container labeled with the patient's name and designated abdominal skin lesion. The specimen consists of a dark miller, raisinoid fragment of skin measuring 1 x 0.7 x 0.6 cm. The specimen is bisected and totally submitted in one cassette. / AM:luisa 10/20/2021 TC:1 CPT: 43512, 64508
[2021-10-19] MEDS: Cefazolin 2 GM in 0.9% Normal Saline 100 ML IV (14:33)
[2021-10-19] MEDS: Bupivacaine Mpf 0.5% 30 ML VIAL (14:50)
[2021-10-19] MEDS: Vasopressin 20 UNITS/ML Vial (14:50)
--- NOTE | 2021-10-19 16:38 | OP.PCM_ITS ---
Problems Associated Problem List Diagnoses (1) Skin lesion: (2) Endometriosis determined by laparoscopy: (3) Pelvic pain: Report of Operation Date of Procedure: 10/19/21 Pre-Operative Diagnosis: pelvic pain endometriosis Post-Operative Diagnosis: same Surgery/Procedure Performed:: LAVH right salpingectomy left ovarian cystectomy Description of Surgical Findings:: multiple endometriosis implants anteiror and posterior uterus, left endoemtrioma Surgeon: Meagan Mejia blueprint maker: Irma Erwin Type of Anesthesia: General Special Medications: nelson Specimen's removed: uterus, tube left ovarian cyst Drains: anderson Estimated Blood Loss (mL): 200 Fluids Replaced: crystalloid Description of Procedure: Patient received preoperative antibiotics and SCDs were on preoperatively. Patient was taken back to the operating room and placed in the dorsal lithotomy position. General anesthesia was induced and patient was prepped and draped in normal sterile fashion. Uterine manipulator was placed inside the uterus and Anderson catheter placed in the bladder. The umbilicus was grasped with towel clamps and an intraumbilical incision was made after injecting with quarter percent Marcaine and a Veress needle entered into the abdomen confirmed to be intra-abdominal with a low opening pressure. Abdomen was insufflated with CO2 gas and the Veress needle removed and the 5 mm trocar was placed under direct visualization without complication. Right and left lower quadrants were transilluminated and injected with quarter percent Marcaine and 5 mm ports placed under direct visualization. Pelvis was well visualized see operative findings for additional information. left ovarian cystectomy peformed by transecting across the ovary at the base of the cyst with the ligasure device. left fallopian tube was absent and right fallopian tube was identified and transected with the LigaSure device across the mesosalpinx to the level of the utero-ovarian ligament which was also transected with the LigaSure device. The broad ligament was opened up by transecting the round ligament bilaterally and skeletonizing the uterine vessels bilaterally and creating a bladder flap using the LigaSure device. The uterine arteries were transected bilaterally with good visualization of the bladder and the ureters were seen to be inferior lateral to the operative area. Attention was then paid to the vaginal portion of the procedure and the cervix was grasped with Dione clamps and circumferentially injected with dilute vasopressin. A circumferential incision was made and the vaginal mucosa was mobilized off posteriorly and the cul-de-sac entered into sharply and a longneck speculum placed. The anterior cul-de-sac was then identified and entered into sharply. The uterosacral ligaments were clamped cut and suture ligated with 0 Monocryl bilaterally followed by the cardinal ligaments which were clamped cut and suture ligated bilaterally with 0 Monocryl. The uterus serially descended and was removed without difficulty. Pelvic sidewall pedicles were checked and noted to have excellent hemostasis. The vaginal mucosa was reapproximated incorporating the posterior peritoneum. This was reapproximated using 0 Vicryl [id number] sutures. Excellent hemostasis was noted. The pelvis and cul-de-sac were well visualized and no significant active bleeding noted but some raw areas were seen on the peritoneum and therefore Nelson was applied. Pressure was taken down and the areas visualized and after treatment with monopolar energy, they were noted to have excellent hemostasis. All ports were removed under direct visualization without complication and the abdomen was desufflated of air. The instruments were removed from the abdomen and the vaginal sweep was negative. Port sites on the abdomen were closed with 4-0 Monocryl interrupted sutures and Steri's and windows were applied. She was awoken and taken recovery in stable condition. Grafts/Implants Used: none Complications none Admit VTE Documentation VTE Present on Admission: No VTE Mechan Device Prophylaxis: SCD's VTE Pharm Prophylaxis ordered?: Yes Multi Select Codes Urinary/Genital Urinary/Genital CPT Codes: 75034 LAVH+BS/O <250gr Uterus
--- NOTE | 2021-10-19 16:44 | DCINST_ITS ---
Discharge Instructions Diet Discharge Diet: No restrictions Activity May resume sexual activity in: 6 weeks Weight Bearing Status: Full weight bearing Dressing / Incision Call your doctor if your incision/area has: Continuous Slow Oozing, Sudden Increased Bleeding, Increased Pain/ Swelling, Increased Redness and Foul Smelling Discharge Call your doctor if you observe: Fever of 101 or Higher, Using more than 1 pad per hour, Shortness of breath, Chest pain and Uncontrolled pain Suture Line Care: Avoid Pulling/Pushing and Avoid Pinching/Bending Remove Dressing in: 1 week (if present) Cleanse incision/area with: Soap & Water and Keep Dressing Clean & Dry Follow Up Care Please Follow Up With: Meagan Mejia MD When: Call to make an appointment with your doctor for a postop visit in 2 and 6 weeks. Test Results: Test results from this visit will be discussed in further detail at your follow- up appointment, if applicable. Discharge Plan Admission Attending Provider: Meagan Mejia Primary Care Provider: Mirta Cross Discharge Orders/Prescriptions Prescriptions: New oxycodone-acetaminophen [Percocet] 5-325 mg tablet 1 tab PO Q6H PRN (Reason: pain) 7 Days Qty: 20 0RF naproxen [naproxen] 500 MG tablet 500 mg PO BID PRN PRN (Reason: Pain) Qty: 30 1RF Continued multivitamin Capsule 1 cap PO DAILY Linzess 145 mcg capsule 145 mcg PO QAM Qty: 30 2RF Referrals / Follow Up: Mirta Cross MD [Primary Care Provider] - Disposition Disposition (needs filled in before D/C Order can be placed): Home, Self Care
[2021-10-19 19:36] LABS: Hematocrit 36.2 % (37-47); Hemoglobin 11.8 g/dL (12.0-15.0); Mean Corp Hgb Conc 32.6 g/dL (32-36); Mean Corpuscular Hgb 30.7 pg (27.0-32.0); Mean Corpuscular Volume 94.3 fL (81-99); Mean Platelet Vol. 12.7 fl (6.2-12.0); POSITIVE COUNT YES; Platelet Count 99 K/mm3 (150-450); RBC Distribution Width CV 13.2 % (11.6-14.6); RBC Distribution Width SD 45.4 fl (35.1-43.9); Red Blood Count 3.84 M/mm3 (4.2-5.4); White Blood Count 5.6 K/mm3 (4.4-11.0)
[2021-10-19 19:37] LABS: Scan Indicated on CBC? Y/N YES- FLAGS NOTED
[2021-10-19 20:19] LABS: Differential Comment SCANNED
[2021-10-19] MEDS: Docusate Sodium 100 MG Capsule PO (23:10)
[2021-10-19] MEDS: Ketorolac 30 MG/ML Syringe IV (23:10)
[2021-10-20 02:32] VITALS: BP 104/63; PULSE 70; RESP 16; TEMP 36.8; O2SAT 99
[2021-10-20] MEDS: Ketorolac 30 MG/ML Syringe IV (06:07)
[2021-10-20 06:16] VITALS: BP 98/65; PULSE 68; RESP 16; TEMP 36.9; O2SAT 98
[2021-10-20 07:01] LABS: Hematocrit 32.1 % (37-47); Hemoglobin 10.7 g/dL (12.0-15.0); Mean Corp Hgb Conc 33.3 g/dL (32-36); Mean Corpuscular Hgb 30.3 pg (27.0-32.0); Mean Corpuscular Volume 90.9 fL (81-99); Mean Platelet Vol. 13.6 fl (6.2-12.0); POSITIVE COUNT YES; Platelet Count 99 K/mm3 (150-450); RBC Distribution Width SD 43.3 fl (35.1-43.9); Red Blood Count 3.53 M/mm3 (4.2-5.4); White Blood Count 7.6 K/mm3 (4.4-11.0)
--- NOTE | 2021-10-20 08:08 | PCM.PN.OB ---
Subjective Subjective patient recovering well, denies CP, SOB, N, or V. patient is ambulating, voiding ,tolerating adequate po, and pain is controlled with oral medications. Objective Data Objective Data Vital Signs: Vital Signs Temp Pulse Resp BP Pulse Ox O2 Del Method O2 Flow Rate 98.4 F 68 16 98/65 98 Room Air 2 10/20/21 06:16 10/20/21 06:16 10/20/21 06:16 10/20/21 06:16 10/20/21 06:16 10/20/21 06:16 10/19/21 18:46 Oxygen Flow Rate (L/min) 2 Oxygen Delivery Method Room Air Weight: 158 lb 11.725 oz Body Mass Index (BMI) 27.2 Intake & Output: Intake and Output for Last 24 Hours 10/18/21 10/19/21 10/20/21 23:59 23:59 23:59 Intake Total 2212 / 2212 512 / 512 Output Total 500 / 500 Balance 1712 / 1712 512 / 512 Lab / Micro Data Result Diagrams: 10/20/21 06:35 10/08/21 12:37 Labs: Laboratory Results - last 24 hr 10/19/21 11:25: POC Glucose 86 10/19/21 11:41: Blood Type A POSITIVE, Antibody Screen NEGATIVE 10/19/21 19:14: WBC 5.6, RBC 3.84 L, Hgb 11.8 L, Hct 36.2 L, MCV 94.3, MCH 30.7, MCHC 32.6, RDW Std Deviation 45.4 H, RDW Coeff of Valerie 13.2, Plt Count 99 L, MPV 12.7 H, Differential Comment SCANNED 10/20/21 06:35: WBC 7.6, RBC 3.53 L, Hgb 10.7 L, Hct 32.1 L, MCV 90.9, MCH 30.3, MCHC 33.3, RDW Std Deviation 43.3, RDW Coeff of Valerie 13.0, Plt Count 99 L, MPV 13.6 H Physical Exam Const alert, oriented x3 and no apparent distress Resp normal respiratory effort GI soft to palpation and non-distended Inspection: incision other (dressing dry and intact) Narrative: Minimal drainage on peripad Bladder / Kidney Exam: catheter in place Assessment & Plan (1) S/P laparoscopic assisted vaginal hysterectomy (LAVH): COMMENT: lavh rs left ovarian cystectomy endometriosis PLAN: Plan patient is s/p LAVH, right salpingectomy, left ovarian cystectomy POD 1 1. routine ERAS protocol postop care- increase ambulation, encourage oral intake and oral control of pain. lovenox and scds for dvt prophylaxis, patient stable for discharge to home.
[2021-10-20 10:08] VITALS: BP 121/66; PULSE 72; RESP 16; TEMP 36.6; O2SAT 100
[2021-10-20] MEDS: Docusate Sodium 100 MG Capsule PO (10:10)
== END 2021-10-20 10:50 | disposition home or self-care (01) ==
LOC: SDC 17:15 → MS3 10-20 07:34
PROVIDERS: Anesthesiology; Admitting Provider Obstetrics & Gynecology; PCP Internal Medicine; Referring Provider Obstetrics & Gynecology; Visit Provider Obstetrics & Gynecology
PROC: 0UT9FZZ Resection of Uterus, Via Natural or Artificial Opening With Percutaneous Endoscopic Assistance (ICD-10-PCS; CPT 58550; principal; 2021-10-19 12:30)
DX: R10.2 Pelvic and perineal pain (principal); I43 Cardiomyopathy in diseases classified elsewhere; I48.91 Unspecified atrial fibrillation; D69.6 Thrombocytopenia, unspecified; K74.00 Hepatic fibrosis, unspecified; L98.9 Disorder of the skin and subcutaneous tissue, unspecified; Z87.891 Personal history of nicotine dependence; Z86.718 Personal history of other venous thrombosis and embolism; Z86.19 Personal history of other infectious and parasitic diseases; N80.3 Endometriosis of pelvic peritoneum
CPT/HCPCS: 58550; 58662; 36415; 80053; 82962; 83735; 85025; 85027; 85610; 86850; 86900; 86901; 88305; 88307; 93005; 96374; 96376; 99218; J7120; G0378; J2405; J3475

== ENCOUNTER → 2022-12-09 | Outpatient (CLI) | payer MEDICAID, SELFPAY ==
--- NOTE | 2022-12-09 10:29 | BI_ITS ---
MAMMOGRAPHY - BILATERAL SCREENING REASON FOR EXAM: Female, 42 years old. Routine annual screening examination. PERTINENT HISTORY: Non-contributory. TECHNIQUE: Digital bilateral breast jair (3D mammographic acquisition) in the CC and MLO projections. 2-D mediolateral oblique (MLO) and craniocaudad (CC) views of both breasts were obtained. CAD: Full Field Digital Mammography with Computer Added Detection was performed. COMPARISON: Comparison is made with prior study of July 02, 2021 and July 01, 2020. FINDINGS: Breast Composition: The breasts are heterogeneously dense, which may obscure small masses. There are no dominant masses or suspicious calcifications. No other significant abnormalities are identified. There has been no significant change since the prior study. BI/SCRN MAMM (CAD)W/JAIR BILAT IMPRESSION: Stable bilateral screening mammogram. Yearly follow-up mammogram recommended. (A) ASSESSMENT CATEGORY: BIRADS Category 1: Negative. A letter regarding these results will be sent to the patient by the facility within 30 days. Approximately 10% of breast cancers are not detected by mammography. A normal mammogram should not delay biopsy of a clinically suspicious abnormality. [id number] Electronically Signed: John Jones MD at 10:10 EDT ,
== END | disposition home or self-care (01) ==
LOC: OPBI 10:28
PROVIDERS: PCP Internal Medicine; Referring Provider Obstetrics & Gynecology; Visit Provider Obstetrics & Gynecology
DX: Z12.31 Encounter for screening mammogram for malignant neoplasm of breast (principal)
CPT/HCPCS: 77063; 77067

== ENCOUNTER → 2024-04-26 | Outpatient (CLI) | payer MEDICAID, SELFPAY ==
[2024-04-26 16:38] LABS: Absolute Lymphocyte Count 1.24 X10^3/uL (0.83-4.51); Absolute Neutrophil Count 2.7 X10^3/uL (2.0-7.7); Basophil# 0.02 X10^3/uL; Basophil% 0.4 % (0-1); Eosinophil# 0.13 X10^3/uL; Eosinophils% 2.9 % (0-5); Hematocrit 37.2 % (37-47); Hemoglobin 12.3 g/dL (12.0-15.0); Lymphocyte # 1.24 X10^3/ul (0.83-4.51); Lymphocyte % 27.4 % (19-41); Mean Corp Hgb Conc 33.1 g/dL (32-36); Mean Corpuscular Hgb 30.2 pg (27.0-32.0); Mean Corpuscular Volume 91.4 fL (81-99); Mean Platelet Vol. 12.3 fl (6.2-12.0); Monocyte# 0.39 X10^3/uL; Monocyte% 8.6 % (0-10); NRBC Flagged by Analyzer 0 % (0-5); Neutrophil # 2.73 X10^3/uL (2.7-7.7); Neutrophil % 60.5 % (47-70); Platelet Count 151 K/mm3 (150-450); RBC Distribution Width CV 12.6 % (11.6-14.6); RBC Distribution Width SD 41.6 fl (35.1-43.9); Red Blood Count 4.07 M/mm3 (4.2-5.4); White Blood Count 4.5 K/mm3 (4.4-11.0)
[2024-04-26 17:18] LABS: ALB/GLOB Ratio 1.1 RATIO (0.9-2.4); AST(SGOT) 9 U/L (15-37); Alanine Aminotransfer ALT/SGPT 11 U/L (13-56); Albumin, Serum 3.6 g/dL (3.2-5.0); Alkaline Phosphatase 48 U/L (45-117); Anion Gap 4 (5-15); BUN 13 mg/dL (7-18); BUN/Creat Ratio 12.1 RATIO (10-20); Calcium,Total 8.9 mg/dL (8.5-10.1); Chloride 111 mmol/L (98-107); Cholesterol 219 mg/dL (200); Creatinine, Serum 1.07 mg/dL (0.55-1.02); EST Glomerular Filtration Rate 59 mL/min (>60); Est Glom Filt Rate - Afr Amer 71 mL/min (>60); Globulin 3.3 g/dL (2.2-4.2); Glucose 77 mg/dL (74-106); High Density Lipoprotein 85 mg/dL; Potassium 4.3 mmol/L (3.5-5.1); Protein, Total 6.9 g/dL (6.4-8.2); Sodium Level 141 mmol/L (136-145); Triglycerides 92 mg/dL; Very Low Density Lipoprotein 18 mg/dL (5-40)
== END | disposition home or self-care (01) ==
LOC: BIMLAB 15:25
PROVIDERS: PCP Internal Medicine; Referring Provider Internal Medicine; Visit Provider Internal Medicine
DX: Z00.00 Encounter for general adult medical examination without abnormal findings (principal)
CPT/HCPCS: 36415; 80053; 80061; 85025